=== PATIENT | female | born 1940 | race African-American/Black ===

== ENCOUNTER 2022-10-07 18:40 | Inpatient (IN) | payer OTHER ==
[2022-10-07 19:03] VITALS: BMI 25.6
[2022-10-07 21:09] LABS: BASO % 0.5 % (0-2.0); EOS % 0.2 % (0-4.5); HEMOGLOBIN 14.5 GM/dL (10.7-15.3); LYMPH % 13.2 % (8-40); MCH 28.9 pg (25.7-33.7); MCHC 33.8 g/dl (32.0-36.0); MEAN CELL VOLUME 85.4 fl (80-96); MEAN PLT VOLUME 9.7 fl (7.5-11.1); MONO % 14.1 % (3.8-10.2); PLATELET COUNT 204 10^3/uL (134-434); RBC 5.04 M/mm3 (3.60-5.2); RDW 17.1 % (11.6-15.6); WHITE BLOOD COUNT 11.2 K/mm3 (4.0-10.0)
[2022-10-07 21:13] LABS: URINE APPEARANCE CLOUDY; URINE BILIRUBIN MODERATE (NEGATIVE); URINE COLOR RED; URINE GLUCOSE (UA) 500 mg/dl (NEGATIVE)
[2022-10-07 21:14] LABS: URINE PROTEIN 300 (NEGATIVE)
[2022-10-07 21:19] LABS: EPI CELLS 29 /uL (0-25.1); HYALINE CASTS 0 /uL (0-3.1); URINE WBC 10 /uL (0-25.8)
[2022-10-07 21:23] LABS: INR 1.28 (0.83-1.09); PROTHROMBIN TIME (PATIENT) 14.8 SEC (9.7-13.0)
[2022-10-07 21:26] LABS: ACTIVATED PTT 27.8 SECONDS (25.2-36.5)
[2022-10-07 21:28] LABS: CHLORIDE 89 mmol/L (98-107); SODIUM 124 mmol/L (136-145)
[2022-10-07 21:30] LABS: ALBUMIN 3.4 g/dl (3.4-5.0); BLOOD UREA NITROGEN 60.6 mg/dL (7-18); CALCIUM 9.6 mg/dL (8.5-10.1); CO2 27 mmol/L (21-32); GLUCOSE,RANDOM 328 mg/dL (74-106)
[2022-10-07 21:33] LABS: CREATININE 2.2 mg/dL (0.55-1.3)
[2022-10-07 21:35] LABS: BILIRUBIN,TOTAL 0.6 mg/dL (0.2-1); TOT PROT 9.9 g/dl (6.4-8.2)
[2022-10-07 21:36] LABS: ALK PHOS 183 U/L (45-117)
[2022-10-07 21:43] LABS: URINE KETONE NEGATIVE (NEGATIVE); URINE LEUK ESTERASE 3+ (NEGATIVE); URINE NITRITE POSITIVE (NEGATIVE)
[2022-10-07 21:49] LABS: ANION GAP 8 MMOL/L (8-16); SGOT/AST 192 U/L (15-37); SGPT/ALT 27 U/L (13-61)
[2022-10-07 22:02] LABS: URINE RBC >200 /uL (0-23.9)
[2022-10-07] MEDS ORDERED: CEFTRIAXONE 1,000 MG in DEXTROSE 5%-WATER - 50 ML IVPB ONE (22:11)
[2022-10-07] MEDS ORDERED: CEFTRIAXONE 1 GM/50 ML BAG ONE (22:49)
[2022-10-08] MEDS ORDERED: KETOROLAC TROMETHAMINE 15 MG/ML VIAL IVPUSH PRN (01:16)
[2022-10-08] MEDS ORDERED: ACETAMINOPHEN 1000 MG/100 ML BAG IVPB ONE (01:30)
[2022-10-08] MEDS: SODIUM CHLORIDE 1,000 ML IV SCH (01:40)
[2022-10-08 02:08] LABS: ALBUMIN 3.5 g/dl (3.4-5.0); CALCIUM 9.6 mg/dL (8.5-10.1)
[2022-10-08 02:09] LABS: BLOOD UREA NITROGEN 60.8 mg/dL (7-18)
[2022-10-08 02:11] LABS: CREATININE 2.1 mg/dL (0.55-1.3)
[2022-10-08 02:13] LABS: BILIRUBIN,TOTAL 0.7 mg/dL (0.2-1); TOT PROT 8.9 g/dl (6.4-8.2)
[2022-10-08] MEDS ORDERED: ACETAMINOPHEN INJECTION 100 ML IVPB ONE (02:21)
[2022-10-08] MEDS: INSULIN SLIDING SCALE (NOVOLOG) 1 VIAL SQ SCH ×5 (02:40→22:35)
[2022-10-08] MEDS ORDERED: SODIUM CHLORIDE 500 ML IV STA (05:28)
[2022-10-08] MEDS ORDERED: ACETAMINOPHEN 325 MG TABLET (FP) PO PRN (06:00)
[2022-10-08] MEDS ORDERED: [UNRECOGNIZED DRUG - REMARK] TP PRN (06:28)
[2022-10-08] MEDS ORDERED: SENNOSIDES 8.6MG TABLET (FP) PO ONE ×2 (07:38→23:36)
[2022-10-08] MEDS ORDERED: PANTOPRAZOLE 40 MG TABLET PO ONE ×3 (07:38→23:36)
[2022-10-08] MEDS ORDERED: FUROSEMIDE 40 MG TABLET (FP) ONE (07:38)
[2022-10-08] MEDS ORDERED: CARVEDILOL 3.125 MG TABLET (FP) ONE ×2 (07:38→23:36)
[2022-10-08] MEDS ORDERED: CEFTRIAXONE 1 GM/50 ML BAG ONE (07:39)
[2022-10-08] MEDS ORDERED: FERROUS SO4 325 MG TABLET (FP) ONE (07:39)
[2022-10-08 07:55] LABS: CHLORIDE 91 mmol/L (98-107); SODIUM 130 mmol/L (136-145)
[2022-10-08 07:57] LABS: ANION GAP 11 MMOL/L (8-16); BLOOD UREA NITROGEN 58.2 mg/dL (7-18); CALCIUM 9.2 mg/dL (8.5-10.1); CO2 28 mmol/L (21-32); GLUCOSE,RANDOM 252 mg/dL (74-106)
[2022-10-08 07:59] LABS: ALBUMIN 3.4 g/dl (3.4-5.0); BLOOD UREA NITROGEN 59.4 mg/dL (7-18); CALCIUM 9.4 mg/dL (8.5-10.1); MAGNESIUM 2.7 mg/dL (1.8-2.4)
[2022-10-08 08:00] LABS: HEMATOCRIT 41.1 % (32.4-45.2); HEMOGLOBIN 13.9 GM/dL (10.7-15.3); MCH 29.3 pg (25.7-33.7); MCHC 33.7 g/dl (32.0-36.0); MEAN CELL VOLUME 86.7 fl (80-96); MEAN PLT VOLUME 9.4 fl (7.5-11.1); PLATELET COUNT 146 10^3/uL (134-434); RBC 4.74 M/mm3 (3.60-5.2); RDW 16.3 % (11.6-15.6); WHITE BLOOD COUNT 11.6 K/mm3 (4.0-10.0)
[2022-10-08 08:02] LABS: CREATININE 2.1 mg/dL (0.55-1.3); PHOSPHOROUS 3.9 mg/dL (2.5-4.9)
[2022-10-08 08:04] LABS: BILIRUBIN,TOTAL 0.9 mg/dL (0.2-1); TOT PROT 8.4 g/dl (6.4-8.2)
[2022-10-08] MEDS: CARVEDILOL 3.125 MG TABLET (FP) PO SCH ×2 (09:31→23:00)
[2022-10-08] MEDS: PANTOPRAZOLE 40 MG TABLET PO SCH ×2 (09:31→23:00)
[2022-10-08] MEDS: CEFTRIAXONE 1 GM in DEXTROSE 5%-WATER - 50 ML IVPB SCH (09:31)
[2022-10-08] MEDS: FERROUS SO4 325 MG TABLET (FP) PO SCH (09:31)
[2022-10-08] MEDS: SENNOSIDES 8.6MG TABLET (FP) PO SCH ×2 (09:31→23:00)
[2022-10-08] MEDS ORDERED: FUROSEMIDE 40 MG TABLET (FP) PO SCH (10:00)
[2022-10-08] MEDS ORDERED: PATIENT'S OWN MEDICATION (NON-FORMULARY) (Cranberry Fruit Extract [Cranberry] 250 MG Capsu PO SCH (10:00)
[2022-10-08] MEDS ORDERED: ACETAMINOPHEN 325 MG TABLET (FP) ONE (17:41)
[2022-10-08] MEDS: INSULIN (LEVEMIR) 100 UNITS/ML UNITS SQ SCH (22:35)
[2022-10-08] MEDS: ATORVASTATIN CA 10 MG TABLET (FP) PO SCH (23:00)
[2022-10-08] MEDS ORDERED: ATORVASTATIN CA 10 MG TABLET (FP) ONE (23:36)
[2022-10-09] MEDS: SODIUM CHLORIDE 1,000 ML IV SCH ×2 (01:00→22:01)
[2022-10-09] MEDS ORDERED: ACETAMINOPHEN 1000 MG/100 ML BAG IVPB PRN (04:59)
[2022-10-09 07:16] LABS: BASO % 0.6 % (0-2.0); EOS % 0.9 % (0-4.5); HEMATOCRIT 34.8 % (32.4-45.2); HEMOGLOBIN 11.5 GM/dL (10.7-15.3); LYMPH % 18.5 % (8-40); MCH 28.8 pg (25.7-33.7); MEAN CELL VOLUME 87.2 fl (80-96); MEAN PLT VOLUME 9.3 fl (7.5-11.1); MONO % 19.1 % (3.8-10.2); NEUT % 60.9 % (42.8-82.8); PLATELET COUNT 147 10^3/uL (134-434); RBC 3.99 M/mm3 (3.60-5.2); RDW 16.3 % (11.6-15.6); WHITE BLOOD COUNT 6.9 K/mm3 (4.0-10.0)
[2022-10-09 07:48] LABS: CALCIUM 8.8 mg/dL (8.5-10.1)
[2022-10-09 07:50] LABS: ALBUMIN 2.9 g/dl (3.4-5.0); BLOOD UREA NITROGEN 47.9 mg/dL (7-18); MAGNESIUM 2.6 mg/dL (1.8-2.4)
[2022-10-09 07:53] LABS: CREATININE 1.6 mg/dL (0.55-1.3); PHOSPHOROUS 3.2 mg/dL (2.5-4.9)
[2022-10-09 07:54] LABS: BILIRUBIN,TOTAL 0.7 mg/dL (0.2-1); TOT PROT 7.3 g/dl (6.4-8.2)
[2022-10-09] MEDS: INSULIN (LEVEMIR) 100 UNITS/ML UNITS SQ SCH ×2 (08:26→22:20)
[2022-10-09] MEDS: INSULIN SLIDING SCALE (NOVOLOG) 1 VIAL SQ SCH ×4 (08:26→22:21)
[2022-10-09] MEDS ORDERED: PANTOPRAZOLE 40 MG TABLET PO ONE (08:36)
[2022-10-09] MEDS ORDERED: FERROUS SO4 325 MG TABLET (FP) ONE (08:36)
[2022-10-09] MEDS ORDERED: CARVEDILOL 3.125 MG TABLET (FP) ONE (08:36)
[2022-10-09] MEDS ORDERED: CEFTRIAXONE 1 GM/50 ML BAG ONE (08:37)
[2022-10-09] MEDS: FERROUS SO4 325 MG TABLET (FP) PO SCH (09:04)
[2022-10-09] MEDS: CEFTRIAXONE 1 GM in DEXTROSE 5%-WATER - 50 ML IVPB SCH (09:05)
[2022-10-09] MEDS: SENNOSIDES 8.6MG TABLET (FP) PO SCH ×2 (09:05→22:19)
[2022-10-09] MEDS: PANTOPRAZOLE 40 MG TABLET PO SCH (09:05)
[2022-10-09] MEDS ORDERED: SODIUM CHLORIDE 1,000 ML IV SCH (10:00)
[2022-10-09] MEDS: CARVEDILOL 3.125 MG TABLET (FP) PO SCH (18:41)
[2022-10-09] MEDS: ATORVASTATIN CA 10 MG TABLET (FP) PO SCH (22:19)
[2022-10-10 04:31] LABS: BASO % 0.6 % (0-2.0); EOS % 1.7 % (0-4.5); HEMOGLOBIN 11.5 GM/dL (10.7-15.3); LYMPH % 21.8 % (8-40); MEAN CELL VOLUME 87.8 fl (80-96); MEAN PLT VOLUME 9.2 fl (7.5-11.1); MONO % 18.1 % (3.8-10.2); NEUT % 57.8 % (42.8-82.8); PLATELET COUNT 163 10^3/uL (134-434); RBC 3.98 M/mm3 (3.60-5.2); RDW 16.5 % (11.6-15.6); WHITE BLOOD COUNT 7.4 K/mm3 (4.0-10.0)
[2022-10-10] MEDS: SODIUM CHLORIDE 1,000 ML IV SCH (05:36)
[2022-10-10] MEDS: INSULIN (LEVEMIR) 100 UNITS/ML UNITS SQ SCH (06:11)
[2022-10-10] MEDS: INSULIN SLIDING SCALE (NOVOLOG) 1 VIAL SQ SCH ×4 (06:11→21:44)
[2022-10-10 08:23] LABS: INR 1.18 (0.83-1.09); PROTHROMBIN TIME (PATIENT) 13.6 SEC (9.7-13.0)
[2022-10-10 08:26] LABS: ACTIVATED PTT 25.5 SECONDS (25.2-36.5)
[2022-10-10 08:27] LABS: BASO % 0.6 % (0-2.0); HEMATOCRIT 31.8 % (32.4-45.2); HEMOGLOBIN 10.6 GM/dL (10.7-15.3); LYMPH % 14.4 % (8-40); MCH 29.2 pg (25.7-33.7); MCHC 33.4 g/dl (32.0-36.0); MEAN CELL VOLUME 87.5 fl (80-96); MEAN PLT VOLUME 9.2 fl (7.5-11.1); MONO % 14.6 % (3.8-10.2); NEUT % 69.4 % (42.8-82.8); PLATELET COUNT 150 10^3/uL (134-434); RBC 3.63 M/mm3 (3.60-5.2); RDW 16.7 % (11.6-15.6); WHITE BLOOD COUNT 8.4 K/mm3 (4.0-10.0)
[2022-10-10 08:44] LABS: CREATININE 0.9 mg/dL (0.55-1.3)
[2022-10-10] MEDS: FERROUS SO4 325 MG TABLET (FP) PO SCH (09:37)
[2022-10-10] MEDS: SENNOSIDES 8.6MG TABLET (FP) PO SCH ×3 (09:38→21:39)
[2022-10-10] MEDS: PANTOPRAZOLE 40 MG TABLET PO SCH (09:38)
[2022-10-10] MEDS: CARVEDILOL 3.125 MG TABLET (FP) PO SCH ×2 (09:57→21:39)
[2022-10-10] MEDS ORDERED: INSULIN (LEVEMIR) 100 UNITS/ML UNITS SQ SCH (11:06)
[2022-10-10] MEDS ORDERED: HEPARIN NA (PORCINE) 5,000 UNITS/ML 1ML VIAL SQ ONE (15:23)
[2022-10-10] MEDS ORDERED: HEPARIN NA (PORCINE) 5,000 UNITS/ML 1ML VIAL IVPUSH PRN ×2 (15:23)
[2022-10-10] MEDS: HEPARIN - 25,000 UNIT in SODIUM CHLORIDE 495 ML IV SCH (16:12)
[2022-10-10] MEDS: ATORVASTATIN CA 10 MG TABLET (FP) PO SCH (21:39)
[2022-10-10 22:58] LABS: BLOOD UREA NITROGEN 23.7 mg/dL (7-18); CALCIUM 8.5 mg/dL (8.5-10.1)
[2022-10-11] MEDS: INSULIN SLIDING SCALE (NOVOLOG) 1 VIAL SQ SCH ×4 (06:31→21:30)
[2022-10-11 07:24] LABS: BASO % 0.6 % (0-2.0); EOS % 1.4 % (0-4.5); HEMATOCRIT 35.2 % (32.4-45.2); HEMOGLOBIN 11.5 GM/dL (10.7-15.3); LYMPH % 17.2 % (8-40); MCH 28.4 pg (25.7-33.7); MCHC 32.6 g/dl (32.0-36.0); MEAN CELL VOLUME 86.9 fl (80-96); MEAN PLT VOLUME 9.4 fl (7.5-11.1); MONO % 13.7 % (3.8-10.2); NEUT % 67.1 % (42.8-82.8); PLATELET COUNT 169 10^3/uL (134-434); RBC 4.05 M/mm3 (3.60-5.2); RDW 16.7 % (11.6-15.6); WHITE BLOOD COUNT 8.7 K/mm3 (4.0-10.0)
[2022-10-11] MEDS: PANTOPRAZOLE 40 MG TABLET PO SCH (09:23)
[2022-10-11] MEDS: CARVEDILOL 3.125 MG TABLET (FP) PO SCH ×2 (09:23→21:20)
[2022-10-11] MEDS: FERROUS SO4 325 MG TABLET (FP) PO SCH (09:23)
[2022-10-11] MEDS: SENNOSIDES 8.6MG TABLET (FP) PO SCH ×2 (09:23→21:20)
[2022-10-11] MEDS: VITAMIN B COMP W-C 1 EA TABLET (NEPHRO-VITE) PO SCH (09:26)
[2022-10-11] MEDS ORDERED: PHENAZOPYRIDINE HCL 100 MG TABLET (FP) PO ONE (11:00)
[2022-10-11] MEDS: HEPARIN - 25,000 UNIT in SODIUM CHLORIDE 495 ML IV SCH (17:43)
[2022-10-11] MEDS: ATORVASTATIN CA 10 MG TABLET (FP) PO SCH (21:20)
[2022-10-12] MEDS: INSULIN SLIDING SCALE (NOVOLOG) 1 VIAL SQ SCH ×4 (06:05→21:43)
[2022-10-12] MEDS: HEPARIN - 25,000 UNIT in SODIUM CHLORIDE 495 ML IV SCH ×2 (06:55→18:40)
[2022-10-12 08:25] LABS: BASO % 0.5 % (0-2.0); EOS % 0.9 % (0-4.5); HEMATOCRIT 34.7 % (32.4-45.2); HEMOGLOBIN 11.6 GM/dL (10.7-15.3); LYMPH % 16.9 % (8-40); MCH 29.5 pg (25.7-33.7); MCHC 33.6 g/dl (32.0-36.0); MEAN CELL VOLUME 87.9 fl (80-96); MEAN PLT VOLUME 8.8 fl (7.5-11.1); MONO % 14.8 % (3.8-10.2); NEUT % 66.9 % (42.8-82.8); PLATELET COUNT 153 10^3/uL (134-434); RBC 3.94 M/mm3 (3.60-5.2); RDW 16.8 % (11.6-15.6); WHITE BLOOD COUNT 8.3 K/mm3 (4.0-10.0)
[2022-10-12] MEDS: SENNOSIDES 8.6MG TABLET (FP) PO SCH ×2 (09:37→21:42)
[2022-10-12] MEDS: VITAMIN B COMP W-C 1 EA TABLET (NEPHRO-VITE) PO SCH (09:37)
[2022-10-12] MEDS: FERROUS SO4 325 MG TABLET (FP) PO SCH (09:38)
[2022-10-12] MEDS: PANTOPRAZOLE 40 MG TABLET PO SCH (09:38)
[2022-10-12] MEDS: CARVEDILOL 3.125 MG TABLET (FP) PO SCH (09:42)
[2022-10-12] MEDS ORDERED: SODIUM CHLORIDE 1,000 ML IV SCH (09:45)
[2022-10-12] MEDS ORDERED: LIDOCAINE HCL 2% JELLY (30 ML/TUBE) TP ONE (11:06)
[2022-10-12] MEDS ORDERED: PHENAZOPYRIDINE HCL 100 MG TABLET (FP) PO ONE (11:07)
[2022-10-12] MEDS ORDERED: PHENYLEPHRINE HCL/COCOA BUTTER SUPPOSITORY RC PRN (15:44)
[2022-10-12] MEDS ORDERED: LIDOCAINE HCL 2% JELLY (5 ML/TUBE) TP ONE (15:45)
[2022-10-12] MEDS ORDERED: CLOPIDOGREL BISULFATE 75 MG TABLET (FP) PO SCH (16:30)
[2022-10-12] MEDS ORDERED: ACETAMINOPHEN 325 MG TABLET (FP) PO ONE (16:32)
[2022-10-12] MEDS ORDERED: NITROGLYCERIN SUBLINGUAL 1/150 0.4 MG TAB SL ONE (16:50)
[2022-10-12] MEDS ORDERED: METOPROLOL TARTRATE 25 MG TABLET (FP) PO ONE (16:50)
[2022-10-12] MEDS: ATORVASTATIN CA 10 MG TABLET (FP) PO SCH (21:42)
[2022-10-13] MEDS: INSULIN SLIDING SCALE (NOVOLOG) 1 VIAL SQ SCH ×4 (06:22→23:25)
[2022-10-13 07:49] LABS: BASO % 0.7 % (0-2.0); EOS % 1.9 % (0-4.5); HEMATOCRIT 35.2 % (32.4-45.2); HEMOGLOBIN 11.2 GM/dL (10.7-15.3); MCH 28.4 pg (25.7-33.7); MEAN CELL VOLUME 88.8 fl (80-96); MEAN PLT VOLUME 9.5 fl (7.5-11.1); MONO % 12.8 % (3.8-10.2); NEUT % 64.6 % (42.8-82.8); PLATELET COUNT 172 10^3/uL (134-434); RBC 3.96 M/mm3 (3.60-5.2); RDW 16.8 % (11.6-15.6); WHITE BLOOD COUNT 7.7 K/mm3 (4.0-10.0)
[2022-10-13 10:13] LABS: INR 1.15 (0.83-1.09); PROTHROMBIN TIME (PATIENT) 13.2 SEC (9.7-13.0)
[2022-10-13] MEDS: SENNOSIDES 8.6MG TABLET (FP) PO SCH ×2 (10:55→22:51)
[2022-10-13] MEDS: PANTOPRAZOLE 40 MG TABLET PO SCH (10:55)
[2022-10-13] MEDS: FERROUS SO4 325 MG TABLET (FP) PO SCH (10:55)
[2022-10-13] MEDS: VITAMIN B COMP W-C 1 EA TABLET (NEPHRO-VITE) PO SCH (10:55)
[2022-10-13] MEDS: METOPROLOL TARTRATE 25 MG TABLET (FP) PO SCH ×2 (10:55→22:49)
[2022-10-13 11:15] LABS: BLOOD UREA NITROGEN 11.7 mg/dL (7-18); CALCIUM 8.3 mg/dL (8.5-10.1); CREATININE 0.8 mg/dL (0.55-1.3)
[2022-10-13] MEDS ORDERED: HEPARIN NA (PORCINE) 5,000 UNITS/ML 1ML VIAL SQ ONE (15:31)
[2022-10-13] MEDS: HEPARIN - 25,000 UNIT in SODIUM CHLORIDE 495 ML IV SCH (17:30)
[2022-10-13] MEDS: ATORVASTATIN CA 10 MG TABLET (FP) PO SCH (22:49)
[2022-10-14] MEDS: HEPARIN - 25,000 UNIT in SODIUM CHLORIDE 495 ML IV SCH (01:24)
[2022-10-14] MEDS: INSULIN SLIDING SCALE (NOVOLOG) 1 VIAL SQ SCH ×4 (07:01→22:57)
[2022-10-14 08:30] LABS: HEMATOCRIT 34.4 % (32.4-45.2); HEMOGLOBIN 11.3 GM/dL (10.7-15.3); MCH 28.7 pg (25.7-33.7); MCHC 32.9 g/dl (32.0-36.0); MEAN CELL VOLUME 87.3 fl (80-96); MEAN PLT VOLUME 9.7 fl (7.5-11.1); PLATELET COUNT 166 10^3/uL (134-434); RBC 3.94 M/mm3 (3.60-5.2); WHITE BLOOD COUNT 7.2 K/mm3 (4.0-10.0)
[2022-10-14] MEDS ORDERED: CEFTRIAXONE 1 GM in DEXTROSE 5%-WATER - 50 ML IVPB SCH (10:00)
[2022-10-14] MEDS: FERROUS SO4 325 MG TABLET (FP) PO SCH (10:38)
[2022-10-14] MEDS: PANTOPRAZOLE 40 MG TABLET PO SCH (10:38)
[2022-10-14] MEDS: VITAMIN B COMP W-C 1 EA TABLET (NEPHRO-VITE) PO SCH (10:38)
[2022-10-14] MEDS: METOPROLOL TARTRATE 25 MG TABLET (FP) PO SCH ×2 (10:38→22:41)
[2022-10-14] MEDS: SENNOSIDES 8.6MG TABLET (FP) PO SCH ×2 (10:39→22:43)
[2022-10-14] MEDS ORDERED: ETOMIDATE 20 MG/10 ML VIAL IVPUSH ONE (13:30)
[2022-10-14] MEDS ORDERED: MIDAZOLAM HCL 2 MG/2 ML SINGLE DOSE VIAL ONE (13:54)
[2022-10-14] MEDS ORDERED: IOHEXOL 300 MG/ML INFUS..BTL IV ONE (14:31)
[2022-10-14] MEDS ORDERED: PHENYLEPHRINE HCL/COCOA BUTTER SUPPOSITORY RC PRN ×2 (14:59→15:38)
[2022-10-14] MEDS ORDERED: HEPARIN NA (PORCINE) 5,000 UNITS/ML 1ML VIAL IVPUSH PRN ×4 (14:59)
[2022-10-14] MEDS ORDERED: HEPARIN - 25,000 UNIT in SODIUM CHLORIDE 495 ML IV SCH (14:59)
[2022-10-14] MEDS ORDERED: ONDANSETRON 4 MG/2 ML VIAL IVPUSH PRN (15:39)
[2022-10-14] MEDS ORDERED: LACTATED RINGERS SOLUTION 1,000 ML IV SCH (15:45)
[2022-10-14] MEDS ORDERED: INSULIN SLIDING SCALE (NOVOLOG) 1 VIAL SQ SCH (16:30)
[2022-10-14] MEDS: oxyCODONE HCL 5 MG TABLET PO PRN (20:13)
[2022-10-14] MEDS ORDERED: METOPROLOL TARTRATE 25 MG TABLET (FP) PO SCH (22:00)
[2022-10-14] MEDS ORDERED: ATORVASTATIN CA 10 MG TABLET (FP) PO SCH (22:00)
[2022-10-14] MEDS ORDERED: SENNOSIDES 8.6MG TABLET (FP) PO SCH (22:00)
[2022-10-14] MEDS: ATORVASTATIN CA 10 MG TABLET (FP) PO SCH (22:43)
[2022-10-15] MEDS: oxyCODONE HCL 5 MG TABLET PO PRN ×2 (04:33→15:07)
[2022-10-15] MEDS: INSULIN SLIDING SCALE (NOVOLOG) 1 VIAL SQ SCH ×4 (06:23→21:12)
[2022-10-15] MEDS: VITAMIN B COMP W-C 1 EA TABLET (NEPHRO-VITE) PO SCH (09:25)
[2022-10-15] MEDS: CEFTRIAXONE 1 GM in DEXTROSE 5%-WATER - 50 ML IVPB SCH (09:25)
[2022-10-15] MEDS: PANTOPRAZOLE 40 MG TABLET PO SCH (09:25)
[2022-10-15] MEDS: FERROUS SO4 325 MG TABLET (FP) PO SCH (09:25)
[2022-10-15] MEDS: SENNOSIDES 8.6MG TABLET (FP) PO SCH ×2 (09:25→21:12)
[2022-10-15] MEDS ORDERED: FERROUS SO4 325 MG TABLET (FP) PO SCH (10:00)
[2022-10-15] MEDS ORDERED: VITAMIN B COMP W-C 1 EA TABLET (NEPHRO-VITE) PO SCH (10:00)
[2022-10-15] MEDS ORDERED: PANTOPRAZOLE 40 MG TABLET PO SCH (10:00)
[2022-10-15] MEDS ORDERED: CEFTRIAXONE 1 GM in DEXTROSE 5%-WATER - 50 ML IVPB SCH (10:00)
[2022-10-15] MEDS: METOPROLOL TARTRATE 25 MG TABLET (FP) PO SCH ×2 (12:00→21:11)
[2022-10-15] MEDS ORDERED: SODIUM CHLORIDE 500 ML IV STA (20:54)
[2022-10-15] MEDS: ATORVASTATIN CA 10 MG TABLET (FP) PO SCH (21:11)
[2022-10-16] MEDS: INSULIN SLIDING SCALE (NOVOLOG) 1 VIAL SQ SCH ×4 (06:18→22:45)
[2022-10-16 07:58] LABS: HEMATOCRIT 33.2 % (32.4-45.2); HEMOGLOBIN 10.5 GM/dL (10.7-15.3); MCH 28.1 pg (25.7-33.7); MCHC 31.7 g/dl (32.0-36.0); MEAN CELL VOLUME 88.8 fl (80-96); MEAN PLT VOLUME 9.1 fl (7.5-11.1); PLATELET COUNT 173 10^3/uL (134-434); RBC 3.74 M/mm3 (3.60-5.2); RDW 17.2 % (11.6-15.6); WHITE BLOOD COUNT 29.5 K/mm3 (4.0-10.0)
[2022-10-16] MEDS: AMINO ACIDS/PROTEIN HYDROLYS 30 ML LIQUID.PKT PO SCH ×2 (08:14→18:03)
[2022-10-16 08:36] LABS: CALCIUM 8.2 mg/dL (8.5-10.1)
[2022-10-16 08:37] LABS: BLOOD UREA NITROGEN 24.2 mg/dL (7-18)
[2022-10-16 08:40] LABS: CREATININE 1.2 mg/dL (0.55-1.3)
[2022-10-16 09:09] LABS: ANISOCYTOSIS 3+; MACROCYTOSIS 0
[2022-10-16] MEDS: PANTOPRAZOLE 40 MG TABLET PO SCH (10:01)
[2022-10-16] MEDS: VITAMIN B COMP W-C 1 EA TABLET (NEPHRO-VITE) PO SCH (10:01)
[2022-10-16] MEDS: FERROUS SO4 325 MG TABLET (FP) PO SCH (10:01)
[2022-10-16] MEDS: CEFTRIAXONE 1 GM in DEXTROSE 5%-WATER - 50 ML IVPB SCH (10:02)
[2022-10-16] MEDS: SENNOSIDES 8.6MG TABLET (FP) PO SCH ×2 (10:02→22:57)
[2022-10-16] MEDS: CARVEDILOL 3.125 MG TABLET (FP) PO SCH ×2 (10:02→22:57)
[2022-10-16 16:44] LABS: HEMATOCRIT 33.2 % (32.4-45.2); HEMOGLOBIN 10.7 GM/dL (10.7-15.3); MCH 28.5 pg (25.7-33.7); MCHC 32.3 g/dl (32.0-36.0); MEAN CELL VOLUME 88.3 fl (80-96); MEAN PLT VOLUME 8.4 fl (7.5-11.1); PLATELET COUNT 166 10^3/uL (134-434); RBC 3.76 M/mm3 (3.60-5.2); RDW 17.4 % (11.6-15.6); WHITE BLOOD COUNT 27.7 K/mm3 (4.0-10.0)
[2022-10-16 17:39] LABS: ANISOCYTOSIS 2+; MACROCYTOSIS 1+; TARGET CELLS 1+
[2022-10-16 17:48] LABS: PLATELET ESTIMATE ADEQUATE
[2022-10-16 18:06] LABS: EPI CELLS 21 /uL (0-25.1); HYALINE CASTS 10 /uL (0-3.1); PH,URINE 5.5 (5.0-8.0); URINE APPEARANCE TURBID; URINE BACTERIA 44 /uL (0-1359); URINE BILIRUBIN NEGATIVE (NEGATIVE); URINE COLOR DK YELLOW; URINE GLUCOSE (UA) TRACE (NEGATIVE); URINE KETONE NEGATIVE (NEGATIVE); URINE LEUK ESTERASE 3+ (NEGATIVE); URINE NITRITE NEGATIVE (NEGATIVE); URINE PROTEIN 3+ (NEGATIVE); URINE UROBILINOGEN 0.2 mg/dL (0.2-1.0); URINE WBC 24207 /uL (0-25.8)
[2022-10-16 19:22] LABS: URINE RBC 1822.6 /uL (0-23.9); YEAST NONE SEEN (NEGATIVE)
[2022-10-16] MEDS: oxyCODONE HCL 5 MG TABLET PO PRN (22:57)
[2022-10-16] MEDS: ATORVASTATIN CA 10 MG TABLET (FP) PO SCH (22:57)
[2022-10-17] MEDS: INSULIN SLIDING SCALE (NOVOLOG) 1 VIAL SQ SCH ×4 (06:25→21:56)
[2022-10-17 08:56] LABS: BASO % 0.3 % (0-2.0); EOS % 0.5 % (0-4.5); HEMATOCRIT 31.2 % (32.4-45.2); HEMOGLOBIN 10.2 GM/dL (10.7-15.3); MCH 28.6 pg (25.7-33.7); MCHC 32.6 g/dl (32.0-36.0); MEAN CELL VOLUME 87.8 fl (80-96); MEAN PLT VOLUME 8.9 fl (7.5-11.1); MONO % 8.7 % (3.8-10.2); NEUT % 87.5 % (42.8-82.8); PLATELET COUNT 166 10^3/uL (134-434); RBC 3.56 M/mm3 (3.60-5.2); RDW 17.5 % (11.6-15.6); WHITE BLOOD COUNT 23.1 K/mm3 (4.0-10.0)
[2022-10-17] MEDS: CEFTRIAXONE 1 GM in DEXTROSE 5%-WATER - 50 ML IVPB SCH (09:53)
[2022-10-17] MEDS: SENNOSIDES 8.6MG TABLET (FP) PO SCH ×2 (09:53→21:57)
[2022-10-17] MEDS: CARVEDILOL 3.125 MG TABLET (FP) PO SCH ×2 (09:53→21:41)
[2022-10-17] MEDS: VITAMIN B COMP W-C 1 EA TABLET (NEPHRO-VITE) PO SCH (09:53)
[2022-10-17] MEDS: PANTOPRAZOLE 40 MG TABLET PO SCH (09:53)
[2022-10-17] MEDS: AMINO ACIDS/PROTEIN HYDROLYS 30 ML LIQUID.PKT PO SCH ×2 (09:53→17:36)
[2022-10-17] MEDS: FERROUS SO4 325 MG TABLET (FP) PO SCH (09:53)
[2022-10-17 10:28] LABS: CALCIUM 8.5 mg/dL (8.5-10.1)
[2022-10-17 10:29] LABS: MAGNESIUM 1.8 mg/dL (1.8-2.4)
[2022-10-17 10:32] LABS: CREATININE 0.9 mg/dL (0.55-1.3); PHOSPHOROUS 3.1 mg/dL (2.5-4.9)
[2022-10-17 10:34] LABS: ANISOCYTOSIS 0; MACROCYTOSIS 0
[2022-10-17] MEDS: oxyCODONE HCL 5 MG TABLET PO PRN ×2 (17:34→21:41)
[2022-10-17] MEDS: PIPERACILLIN/TAZOB 3.375 GM 3.375 GM in DEXTROSE 5%-WATER - 50 ML IVPB SCH (17:36)
[2022-10-17] MEDS ORDERED: PIPERACILLIN/TAZOB 3.375 GM 3.375 GM in DEXTROSE 5%-WATER - 50 ML IVPB SCH (18:00)
[2022-10-17] MEDS: ATORVASTATIN CA 10 MG TABLET (FP) PO SCH (21:42)
[2022-10-18] MEDS: PIPERACILLIN/TAZOB 3.375 GM 3.375 GM in DEXTROSE 5%-WATER - 50 ML IVPB SCH ×3 (04:09→17:07)
[2022-10-18] MEDS: INSULIN SLIDING SCALE (NOVOLOG) 1 VIAL SQ SCH ×4 (06:26→22:59)
[2022-10-18 07:44] LABS: BASO % 0.5 % (0-2.0); EOS % 1.4 % (0-4.5); HEMATOCRIT 30.6 % (32.4-45.2); HEMOGLOBIN 10.1 GM/dL (10.7-15.3); LYMPH % 6.5 % (8-40); MCHC 33.1 g/dl (32.0-36.0); MEAN CELL VOLUME 87.7 fl (80-96); MEAN PLT VOLUME 8.8 fl (7.5-11.1); MONO % 13.6 % (3.8-10.2); PLATELET COUNT 164 10^3/uL (134-434); RBC 3.49 M/mm3 (3.60-5.2); RDW 17.3 % (11.6-15.6); WHITE BLOOD COUNT 12.9 K/mm3 (4.0-10.0)
[2022-10-18 08:09] LABS: BLOOD UREA NITROGEN 28.5 mg/dL (7-18); CALCIUM 8.3 mg/dL (8.5-10.1); MAGNESIUM 1.8 mg/dL (1.8-2.4)
[2022-10-18 08:12] LABS: CREATININE 0.9 mg/dL (0.55-1.3); PHOSPHOROUS 2.3 mg/dL (2.5-4.9)
[2022-10-18 08:13] LABS: BILIRUBIN,TOTAL 0.4 mg/dL (0.2-1)
[2022-10-18 08:14] LABS: TOT PROT 5.8 g/dl (6.4-8.2)
[2022-10-18 08:16] LABS: ALBUMIN 2.1 g/dl (3.4-5.0)
[2022-10-18] MEDS: oxyCODONE HCL 5 MG TABLET PO PRN ×3 (10:08→22:44)
[2022-10-18] MEDS: FERROUS SO4 325 MG TABLET (FP) PO SCH (10:10)
[2022-10-18] MEDS: CARVEDILOL 3.125 MG TABLET (FP) PO SCH ×2 (10:11→22:44)
[2022-10-18] MEDS: SENNOSIDES 8.6MG TABLET (FP) PO SCH ×3 (10:11→22:59)
[2022-10-18] MEDS: PANTOPRAZOLE 40 MG TABLET PO SCH (10:11)
[2022-10-18] MEDS: VITAMIN B COMP W-C 1 EA TABLET (NEPHRO-VITE) PO SCH (10:11)
[2022-10-18] MEDS: AMINO ACIDS/PROTEIN HYDROLYS 30 ML LIQUID.PKT PO SCH ×2 (10:12→16:42)
[2022-10-18] MEDS: ATORVASTATIN CA 10 MG TABLET (FP) PO SCH (22:44)
[2022-10-19] MEDS: PIPERACILLIN/TAZOB 3.375 GM 3.375 GM in DEXTROSE 5%-WATER - 50 ML IVPB SCH ×2 (02:35→10:03)
[2022-10-19] MEDS: INSULIN SLIDING SCALE (NOVOLOG) 1 VIAL SQ SCH ×4 (06:16→22:56)
[2022-10-19 07:43] LABS: HEMATOCRIT 29.3 % (32.4-45.2); HEMOGLOBIN 9.9 GM/dL (10.7-15.3); MCH 29.3 pg (25.7-33.7); MCHC 33.8 g/dl (32.0-36.0); MEAN CELL VOLUME 86.6 fl (80-96); MEAN PLT VOLUME 8.6 fl (7.5-11.1); PLATELET COUNT 171 10^3/uL (134-434); RBC 3.39 M/mm3 (3.60-5.2); RDW 17.1 % (11.6-15.6); WHITE BLOOD COUNT 9.9 K/mm3 (4.0-10.0)
[2022-10-19] MEDS: VITAMIN B COMP W-C 1 EA TABLET (NEPHRO-VITE) PO SCH (10:03)
[2022-10-19] MEDS: AMINO ACIDS/PROTEIN HYDROLYS 30 ML LIQUID.PKT PO SCH ×2 (10:03→18:05)
[2022-10-19] MEDS: CARVEDILOL 3.125 MG TABLET (FP) PO SCH ×2 (10:03→22:51)
[2022-10-19] MEDS: FERROUS SO4 325 MG TABLET (FP) PO SCH (10:03)
[2022-10-19] MEDS: PANTOPRAZOLE 40 MG TABLET PO SCH (10:03)
[2022-10-19] MEDS: SENNOSIDES 8.6MG TABLET (FP) PO SCH ×2 (10:08→22:52)
[2022-10-19] MEDS: oxyCODONE HCL 5 MG TABLET PO PRN ×2 (10:09→22:53)
[2022-10-19] MEDS ORDERED: MEROPENEM 1 GM in DEXTROSE 5%-WATER 100 ML IVPB SCH (18:00)
[2022-10-19] MEDS: ATORVASTATIN CA 10 MG TABLET (FP) PO SCH (22:51)
[2022-10-20] MEDS: MEROPENEM 1 GM in DEXTROSE 5%-WATER 100 ML IVPB SCH ×3 (02:43→17:40)
[2022-10-20] MEDS: INSULIN SLIDING SCALE (NOVOLOG) 1 VIAL SQ SCH ×4 (07:05→21:52)
[2022-10-20 07:49] LABS: BASO % 0.6 % (0-2.0); EOS % 0.7 % (0-4.5); HEMATOCRIT 30.8 % (32.4-45.2); HEMOGLOBIN 10.2 GM/dL (10.7-15.3); LYMPH % 13.3 % (8-40); MCHC 33.2 g/dl (32.0-36.0); MEAN CELL VOLUME 87.3 fl (80-96); MEAN PLT VOLUME 8.8 fl (7.5-11.1); NEUT % 73.4 % (42.8-82.8); PLATELET COUNT 207 10^3/uL (134-434); RBC 3.53 M/mm3 (3.60-5.2); RDW 16.7 % (11.6-15.6); WHITE BLOOD COUNT 10.7 K/mm3 (4.0-10.0)
[2022-10-20 08:06] LABS: CREATININE 0.8 mg/dL (0.55-1.3)
[2022-10-20 08:08] LABS: ALBUMIN 2.2 g/dl (3.4-5.0); BILIRUBIN,TOTAL 0.4 mg/dL (0.2-1); BLOOD UREA NITROGEN 21.3 mg/dL (7-18); TOT PROT 6.2 g/dl (6.4-8.2)
[2022-10-20 08:10] LABS: CALCIUM 8.1 mg/dL (8.5-10.1)
[2022-10-20] MEDS: PANTOPRAZOLE 40 MG TABLET PO SCH (09:52)
[2022-10-20] MEDS: FERROUS SO4 325 MG TABLET (FP) PO SCH (09:52)
[2022-10-20] MEDS: VITAMIN B COMP W-C 1 EA TABLET (NEPHRO-VITE) PO SCH (09:52)
[2022-10-20] MEDS: CARVEDILOL 3.125 MG TABLET (FP) PO SCH ×2 (09:52→21:52)
[2022-10-20] MEDS: SENNOSIDES 8.6MG TABLET (FP) PO SCH ×2 (09:53→21:57)
[2022-10-20] MEDS: AMINO ACIDS/PROTEIN HYDROLYS 30 ML LIQUID.PKT PO SCH ×3 (10:26→17:40)
[2022-10-20] MEDS: ATORVASTATIN CA 10 MG TABLET (FP) PO SCH (21:52)
[2022-10-21] MEDS: MEROPENEM 1 GM in DEXTROSE 5%-WATER 100 ML IVPB SCH ×3 (02:15→17:01)
[2022-10-21] MEDS: INSULIN SLIDING SCALE (NOVOLOG) 1 VIAL SQ SCH ×4 (06:23→21:21)
[2022-10-21 08:59] LABS: BASO % 0.7 % (0-2.0); EOS % 0.8 % (0-4.5); HEMATOCRIT 32.7 % (32.4-45.2); HEMOGLOBIN 10.4 GM/dL (10.7-15.3); LYMPH % 18.4 % (8-40); MCH 27.9 pg (25.7-33.7); MCHC 31.9 g/dl (32.0-36.0); MEAN CELL VOLUME 87.6 fl (80-96); MEAN PLT VOLUME 8.9 fl (7.5-11.1); MONO % 10.5 % (3.8-10.2); NEUT % 69.6 % (42.8-82.8); PLATELET COUNT 235 10^3/uL (134-434); RBC 3.73 M/mm3 (3.60-5.2); RDW 17.5 % (11.6-15.6)
[2022-10-21 09:14] LABS: BLOOD UREA NITROGEN 21.3 mg/dL (7-18)
[2022-10-21 09:19] LABS: CREATININE 0.7 mg/dL (0.55-1.3)
[2022-10-21] MEDS: SENNOSIDES 8.6MG TABLET (FP) PO SCH ×2 (10:43→21:16)
[2022-10-21] MEDS: FERROUS SO4 325 MG TABLET (FP) PO SCH (10:43)
[2022-10-21] MEDS: CARVEDILOL 3.125 MG TABLET (FP) PO SCH ×2 (10:43→21:16)
[2022-10-21] MEDS: PANTOPRAZOLE 40 MG TABLET PO SCH (10:43)
[2022-10-21] MEDS: AMINO ACIDS/PROTEIN HYDROLYS 30 ML LIQUID.PKT PO SCH ×3 (10:43→17:02)
[2022-10-21] MEDS: VITAMIN B COMP W-C 1 EA TABLET (NEPHRO-VITE) PO SCH (10:45)
[2022-10-21] MEDS: ZINC SULFATE 220 MG CAPSULE (FP) PO SCH (17:02)
[2022-10-21] MEDS: ATORVASTATIN CA 10 MG TABLET (FP) PO SCH (21:16)
[2022-10-21] MEDS: INSULIN (LEVEMIR) 100 UNITS/ML UNITS SQ SCH (21:23)
[2022-10-22] MEDS: MEROPENEM 1 GM in DEXTROSE 5%-WATER 100 ML IVPB SCH ×3 (01:02→17:29)
[2022-10-22] MEDS: INSULIN (LEVEMIR) 100 UNITS/ML UNITS SQ SCH ×2 (06:07→21:16)
[2022-10-22] MEDS: INSULIN SLIDING SCALE (NOVOLOG) 1 VIAL SQ SCH ×4 (06:07→21:15)
[2022-10-22 09:24] LABS: BASO % 0.8 % (0-2.0); EOS % 0.9 % (0-4.5); HEMATOCRIT 29.4 % (32.4-45.2); HEMOGLOBIN 9.6 GM/dL (10.7-15.3); LYMPH % 16.4 % (8-40); MCH 28.3 pg (25.7-33.7); MCHC 32.7 g/dl (32.0-36.0); MEAN CELL VOLUME 86.6 fl (80-96); MEAN PLT VOLUME 9.2 fl (7.5-11.1); MONO % 8.7 % (3.8-10.2); NEUT % 73.2 % (42.8-82.8); PLATELET COUNT 238 10^3/uL (134-434); RDW 17.3 % (11.6-15.6); WHITE BLOOD COUNT 9.2 K/mm3 (4.0-10.0)
[2022-10-22] MEDS: CARVEDILOL 3.125 MG TABLET (FP) PO SCH ×2 (09:42→21:15)
[2022-10-22] MEDS: VITAMIN B COMP W-C 1 EA TABLET (NEPHRO-VITE) PO SCH (09:46)
[2022-10-22] MEDS: PANTOPRAZOLE 40 MG TABLET PO SCH (09:46)
[2022-10-22] MEDS: AMINO ACIDS/PROTEIN HYDROLYS 30 ML LIQUID.PKT PO SCH ×3 (09:46→17:29)
[2022-10-22] MEDS: FERROUS SO4 325 MG TABLET (FP) PO SCH (09:46)
[2022-10-22] MEDS: ZINC SULFATE 220 MG CAPSULE (FP) PO SCH (09:46)
[2022-10-22] MEDS: SENNOSIDES 8.6MG TABLET (FP) PO SCH ×2 (09:47→21:16)
[2022-10-22 10:48] LABS: CALCIUM 8.1 mg/dL (8.5-10.1)
[2022-10-22 10:49] LABS: BLOOD UREA NITROGEN 21.6 mg/dL (7-18)
[2022-10-22 10:52] LABS: CREATININE 0.8 mg/dL (0.55-1.3)
[2022-10-22] MEDS ORDERED: ACETAMINOPHEN 325 MG TABLET (FP) PO PRN (13:32)
[2022-10-22] MEDS: traMADol HCL 50 MG TABLET PO PRN (14:05)
[2022-10-22] MEDS: ATORVASTATIN CA 10 MG TABLET (FP) PO SCH (21:15)
[2022-10-23] MEDS: MEROPENEM 1 GM in DEXTROSE 5%-WATER 100 ML IVPB SCH ×3 (01:29→18:08)
[2022-10-23] MEDS: INSULIN (LEVEMIR) 100 UNITS/ML UNITS SQ SCH (06:41)
[2022-10-23] MEDS: INSULIN SLIDING SCALE (NOVOLOG) 1 VIAL SQ SCH ×4 (06:41→21:01)
[2022-10-23 07:43] LABS: EOS % 1.3 % (0-4.5); HEMATOCRIT 31.4 % (32.4-45.2); HEMOGLOBIN 10.2 GM/dL (10.7-15.3); LYMPH % 17.6 % (8-40); MCH 28.2 pg (25.7-33.7); MCHC 32.4 g/dl (32.0-36.0); MEAN CELL VOLUME 87.2 fl (80-96); MEAN PLT VOLUME 9.1 fl (7.5-11.1); MONO % 9.4 % (3.8-10.2); NEUT % 70.7 % (42.8-82.8); PLATELET COUNT 272 10^3/uL (134-434); RDW 17.4 % (11.6-15.6)
[2022-10-23 08:01] LABS: BLOOD UREA NITROGEN 25.3 mg/dL (7-18); CALCIUM 8.3 mg/dL (8.5-10.1)
[2022-10-23 08:04] LABS: CREATININE 0.7 mg/dL (0.55-1.3)
[2022-10-23] MEDS: AMINO ACIDS/PROTEIN HYDROLYS 30 ML LIQUID.PKT PO SCH ×3 (10:25→18:08)
[2022-10-23] MEDS: PANTOPRAZOLE 40 MG TABLET PO SCH (10:36)
[2022-10-23] MEDS: FERROUS SO4 325 MG TABLET (FP) PO SCH (10:36)
[2022-10-23] MEDS: CARVEDILOL 3.125 MG TABLET (FP) PO SCH ×3 (10:36→21:01)
[2022-10-23] MEDS: SENNOSIDES 8.6MG TABLET (FP) PO SCH ×2 (10:36→21:02)
[2022-10-23] MEDS: traMADol HCL 50 MG TABLET PO PRN (10:37)
[2022-10-23] MEDS: ZINC SULFATE 220 MG CAPSULE (FP) PO SCH (10:37)
[2022-10-23] MEDS: VITAMIN B COMP W-C 1 EA TABLET (NEPHRO-VITE) PO SCH (10:38)
[2022-10-23] MEDS ORDERED: DEXTROSE 50%-WATER 25 GM/50 ML DISP.SYRIN IVPUSH PRN (14:31)
[2022-10-23] MEDS: ATORVASTATIN CA 10 MG TABLET (FP) PO SCH (21:01)
[2022-10-23] MEDS ORDERED: INSULIN (LEVEMIR) 100 UNITS/ML UNITS SQ SCH (22:00)
[2022-10-24] MEDS: MEROPENEM 1 GM in DEXTROSE 5%-WATER 100 ML IVPB SCH ×3 (02:08→18:33)
[2022-10-24] MEDS: INSULIN (LEVEMIR) 100 UNITS/ML UNITS SQ SCH (06:08)
[2022-10-24] MEDS: INSULIN SLIDING SCALE (NOVOLOG) 1 VIAL SQ SCH ×4 (06:08→22:27)
[2022-10-24] MEDS: traMADol HCL 50 MG TABLET PO PRN (07:45)
[2022-10-24 09:24] LABS: BASO % 0.4 % (0-2.0); EOS % 0.6 % (0-4.5); HEMATOCRIT 33.5 % (32.4-45.2); HEMOGLOBIN 10.5 GM/dL (10.7-15.3); LYMPH % 9.5 % (8-40); MCH 27.3 pg (25.7-33.7); MCHC 31.5 g/dl (32.0-36.0); MEAN CELL VOLUME 86.9 fl (80-96); MEAN PLT VOLUME 8.9 fl (7.5-11.1); MONO % 6.3 % (3.8-10.2); NEUT % 83.2 % (42.8-82.8); PLATELET COUNT 319 10^3/uL (134-434); RBC 3.86 M/mm3 (3.60-5.2); RDW 17.7 % (11.6-15.6); WHITE BLOOD COUNT 13.7 K/mm3 (4.0-10.0)
[2022-10-24 10:07] LABS: CALCIUM 8.6 mg/dL (8.5-10.1)
[2022-10-24 10:08] LABS: BLOOD UREA NITROGEN 25.4 mg/dL (7-18)
[2022-10-24 10:11] LABS: CREATININE 0.7 mg/dL (0.55-1.3)
[2022-10-24] MEDS: AMINO ACIDS/PROTEIN HYDROLYS 30 ML LIQUID.PKT PO SCH ×2 (11:50→18:33)
[2022-10-24] MEDS: ZINC SULFATE 220 MG CAPSULE (FP) PO SCH (11:51)
[2022-10-24] MEDS: CARVEDILOL 3.125 MG TABLET (FP) PO SCH ×2 (11:51→22:21)
[2022-10-24] MEDS: VITAMIN B COMP W-C 1 EA TABLET (NEPHRO-VITE) PO SCH (11:51)
[2022-10-24] MEDS: FERROUS SO4 325 MG TABLET (FP) PO SCH (11:51)
[2022-10-24] MEDS: PANTOPRAZOLE 40 MG TABLET PO SCH (11:51)
[2022-10-24] MEDS: SENNOSIDES 8.6MG TABLET (FP) PO SCH ×2 (12:26→21:05)
[2022-10-24] MEDS: ATORVASTATIN CA 10 MG TABLET (FP) PO SCH (22:21)
[2022-10-25] MEDS: MEROPENEM 1 GM in DEXTROSE 5%-WATER 100 ML IVPB SCH ×3 (01:01→18:13)
[2022-10-25] MEDS: INSULIN SLIDING SCALE (NOVOLOG) 1 VIAL SQ SCH ×5 (06:02→22:06)
[2022-10-25] MEDS: INSULIN (LEVEMIR) 100 UNITS/ML UNITS SQ SCH (06:02)
[2022-10-25 08:37] LABS: BASO % 0.9 % (0-2.0); EOS % 1.1 % (0-4.5); HEMATOCRIT 29.8 % (32.4-45.2); HEMOGLOBIN 9.5 GM/dL (10.7-15.3); LYMPH % 11.3 % (8-40); MCH 27.6 pg (25.7-33.7); MCHC 31.8 g/dl (32.0-36.0); MEAN CELL VOLUME 86.8 fl (80-96); MEAN PLT VOLUME 8.9 fl (7.5-11.1); MONO % 8.1 % (3.8-10.2); NEUT % 78.6 % (42.8-82.8); PLATELET COUNT 274 10^3/uL (134-434); RBC 3.43 M/mm3 (3.60-5.2); RDW 17.6 % (11.6-15.6); WHITE BLOOD COUNT 12.5 K/mm3 (4.0-10.0)
[2022-10-25 08:55] LABS: BLOOD UREA NITROGEN 17.9 mg/dL (7-18); CALCIUM 8.2 mg/dL (8.5-10.1)
[2022-10-25 08:59] LABS: CREATININE 0.8 mg/dL (0.55-1.3)
[2022-10-25] MEDS: FERROUS SO4 325 MG TABLET (FP) PO SCH (09:56)
[2022-10-25] MEDS: AMINO ACIDS/PROTEIN HYDROLYS 30 ML LIQUID.PKT PO SCH ×3 (09:56→18:13)
[2022-10-25] MEDS: SENNOSIDES 8.6MG TABLET (FP) PO SCH ×3 (09:56→22:06)
[2022-10-25] MEDS: PANTOPRAZOLE 40 MG TABLET PO SCH (09:56)
[2022-10-25] MEDS: VITAMIN B COMP W-C 1 EA TABLET (NEPHRO-VITE) PO SCH (09:57)
[2022-10-25] MEDS: CARVEDILOL 3.125 MG TABLET (FP) PO SCH ×3 (09:57→22:06)
[2022-10-25] MEDS: ZINC SULFATE 220 MG CAPSULE (FP) PO SCH (10:24)
[2022-10-25] MEDS: ATORVASTATIN CA 10 MG TABLET (FP) PO SCH ×2 (21:43→22:06)
[2022-10-25] MEDS ORDERED: PHENYLEPHRINE HCL/COCOA BUTTER SUPPOSITORY RC PRN (21:54)
[2022-10-26] MEDS: MEROPENEM 1 GM in DEXTROSE 5%-WATER 100 ML IVPB SCH ×3 (02:45→17:19)
[2022-10-26] MEDS: INSULIN (LEVEMIR) 100 UNITS/ML UNITS SQ SCH (07:00)
[2022-10-26] MEDS: INSULIN SLIDING SCALE (NOVOLOG) 1 VIAL SQ SCH ×4 (07:01→23:05)
[2022-10-26] MEDS: AMINO ACIDS/PROTEIN HYDROLYS 30 ML LIQUID.PKT PO SCH ×3 (08:30→17:19)
[2022-10-26 09:25] LABS: BASO % 0.6 % (0-2.0); EOS % 1.1 % (0-4.5); HEMATOCRIT 33.8 % (32.4-45.2); HEMOGLOBIN 10.6 GM/dL (10.7-15.3); LYMPH % 12.8 % (8-40); MCH 27.4 pg (25.7-33.7); MCHC 31.3 g/dl (32.0-36.0); MEAN CELL VOLUME 87.4 fl (80-96); MEAN PLT VOLUME 9.1 fl (7.5-11.1); MONO % 7.2 % (3.8-10.2); NEUT % 78.3 % (42.8-82.8); PLATELET COUNT 338 10^3/uL (134-434); RBC 3.87 M/mm3 (3.60-5.2); RDW 17.7 % (11.6-15.6); WHITE BLOOD COUNT 12.3 K/mm3 (4.0-10.0)
[2022-10-26 09:53] LABS: ALBUMIN 2.4 g/dl (3.4-5.0)
[2022-10-26 09:54] LABS: CALCIUM 8.7 mg/dL (8.5-10.1); MAGNESIUM 2.4 mg/dL (1.8-2.4)
[2022-10-26 09:56] LABS: CREATININE 0.8 mg/dL (0.55-1.3); PHOSPHOROUS 2.2 mg/dL (2.5-4.9)
[2022-10-26 09:57] LABS: TOT PROT 6.8 g/dl (6.4-8.2)
[2022-10-26 09:58] LABS: BILIRUBIN,TOTAL 0.5 mg/dL (0.2-1)
[2022-10-26] MEDS: ZINC SULFATE 220 MG CAPSULE (FP) PO SCH (10:35)
[2022-10-26] MEDS: VITAMIN B COMP W-C 1 EA TABLET (NEPHRO-VITE) PO SCH (10:35)
[2022-10-26] MEDS: PANTOPRAZOLE 40 MG TABLET PO SCH (10:35)
[2022-10-26] MEDS: FERROUS SO4 325 MG TABLET (FP) PO SCH (10:35)
[2022-10-26] MEDS: CARVEDILOL 3.125 MG TABLET (FP) PO SCH ×2 (10:35→23:06)
[2022-10-26] MEDS: SENNOSIDES 8.6MG TABLET (FP) PO SCH ×2 (10:35→23:06)
[2022-10-26] MEDS: ATORVASTATIN CA 10 MG TABLET (FP) PO SCH (23:06)
[2022-10-27] MEDS: INSULIN (LEVEMIR) 100 UNITS/ML UNITS SQ SCH (07:42)
[2022-10-27 09:56] LABS: BASO % 0.9 % (0-2.0); EOS % 1.8 % (0-4.5); HEMATOCRIT 32.6 % (32.4-45.2); HEMOGLOBIN 10.5 GM/dL (10.7-15.3); MCH 27.8 pg (25.7-33.7); MCHC 32.1 g/dl (32.0-36.0); MEAN CELL VOLUME 86.8 fl (80-96); MONO % 6.7 % (3.8-10.2); NEUT % 75.6 % (42.8-82.8); PLATELET COUNT 337 10^3/uL (134-434); RBC 3.76 M/mm3 (3.60-5.2); RDW 17.5 % (11.6-15.6); WHITE BLOOD COUNT 10.2 K/mm3 (4.0-10.0)
[2022-10-27 10:07] LABS: INR 1.13 (0.83-1.09)
[2022-10-27 10:10] LABS: ACTIVATED PTT 29.9 SECONDS (25.2-36.5)
[2022-10-27 10:26] LABS: CALCIUM 8.4 mg/dL (8.5-10.1)
[2022-10-27 10:27] LABS: BLOOD UREA NITROGEN 15.2 mg/dL (7-18)
[2022-10-27 10:29] LABS: CREATININE 0.7 mg/dL (0.55-1.3)
[2022-10-27] MEDS: ZINC SULFATE 220 MG CAPSULE (FP) PO SCH (11:11)
[2022-10-27] MEDS: AMINO ACIDS/PROTEIN HYDROLYS 30 ML LIQUID.PKT PO SCH ×3 (11:11→17:28)
[2022-10-27] MEDS: CARVEDILOL 3.125 MG TABLET (FP) PO SCH ×2 (11:11→22:43)
[2022-10-27] MEDS: PANTOPRAZOLE 40 MG TABLET PO SCH (11:11)
[2022-10-27] MEDS: SENNOSIDES 8.6MG TABLET (FP) PO SCH ×2 (11:12→22:44)
[2022-10-27] MEDS: FERROUS SO4 325 MG TABLET (FP) PO SCH (11:12)
[2022-10-27] MEDS: VITAMIN B COMP W-C 1 EA TABLET (NEPHRO-VITE) PO SCH (11:12)
[2022-10-27] MEDS: MEROPENEM 1 GM in DEXTROSE 5%-WATER 100 ML IVPB SCH (11:16)
[2022-10-27] MEDS: INSULIN SLIDING SCALE (NOVOLOG) 1 VIAL SQ SCH ×3 (11:17→22:45)
[2022-10-27] MEDS: ATORVASTATIN CA 10 MG TABLET (FP) PO SCH (22:43)
[2022-10-28] MEDS: MEROPENEM 1 GM in DEXTROSE 5%-WATER 100 ML IVPB SCH ×2 (02:57→02:58)
[2022-10-28] MEDS: INSULIN (LEVEMIR) 100 UNITS/ML UNITS SQ SCH (06:57)
[2022-10-28] MEDS: INSULIN SLIDING SCALE (NOVOLOG) 1 VIAL SQ SCH ×3 (06:57→21:24)
[2022-10-28 09:18] LABS: BASO % 0.7 % (0-2.0); EOS % 2.3 % (0-4.5); HEMATOCRIT 32.1 % (32.4-45.2); HEMOGLOBIN 10.3 GM/dL (10.7-15.3); MCH 27.8 pg (25.7-33.7); MEAN CELL VOLUME 86.7 fl (80-96); PLATELET COUNT 334 10^3/uL (134-434); RDW 17.4 % (11.6-15.6); WHITE BLOOD COUNT 8.3 K/mm3 (4.0-10.0)
[2022-10-28] MEDS: FERROUS SO4 325 MG TABLET (FP) PO SCH (09:44)
[2022-10-28] MEDS: ZINC SULFATE 220 MG CAPSULE (FP) PO SCH (09:44)
[2022-10-28] MEDS: VITAMIN B COMP W-C 1 EA TABLET (NEPHRO-VITE) PO SCH (09:44)
[2022-10-28] MEDS: AMINO ACIDS/PROTEIN HYDROLYS 30 ML LIQUID.PKT PO SCH ×3 (09:44→16:50)
[2022-10-28] MEDS: CARVEDILOL 3.125 MG TABLET (FP) PO SCH ×2 (09:44→22:05)
[2022-10-28] MEDS: PANTOPRAZOLE 40 MG TABLET PO SCH (09:44)
[2022-10-28] MEDS: SENNOSIDES 8.6MG TABLET (FP) PO SCH (09:45)
[2022-10-28 09:46] LABS: CALCIUM 8.6 mg/dL (8.5-10.1)
[2022-10-28 09:47] LABS: ALBUMIN 2.3 g/dl (3.4-5.0); BLOOD UREA NITROGEN 15.8 mg/dL (7-18)
[2022-10-28 09:48] LABS: MAGNESIUM 2.2 mg/dL (1.8-2.4)
[2022-10-28 09:50] LABS: CREATININE 0.8 mg/dL (0.55-1.3); PHOSPHOROUS 2.7 mg/dL (2.5-4.9)
[2022-10-28 09:52] LABS: BILIRUBIN,TOTAL 0.5 mg/dL (0.2-1); TOT PROT 6.3 g/dl (6.4-8.2)
[2022-10-28] MEDS ORDERED: FENTANYL CITRATE/PF 50 MCG/ML VIAL ONE ×3 (11:48→13:27)
[2022-10-28] MEDS ORDERED: PROPOFOL 20 ML ONE (11:48)
[2022-10-28] MEDS ORDERED: ceFAZolin SODIUM 1 GM VIAL IVPB ONE (12:23)
[2022-10-28] MEDS ORDERED: PHENYLEPHRINE HCL 10 MG/1 ML SINGLE DOSE VIAL ONE (12:25)
[2022-10-28] MEDS ORDERED: ACETAMINOPHEN 1000 MG/100 ML BAG IVPB ONE (13:07)
[2022-10-28] MEDS ORDERED: ONDANSETRON 4 MG/2 ML VIAL IVPUSH PRN (13:07)
[2022-10-28] MEDS ORDERED: LACTATED RINGERS SOLUTION 1,000 ML IV SCH (13:15)
[2022-10-28] MEDS ORDERED: ACETAMINOPHEN INJECTION 100 ML IVPB ONE (13:27)
[2022-10-28] MEDS ORDERED: ACETAMINOPHEN 500 MG TABLET (FP) PO PRN (15:29)
[2022-10-28] MEDS: oxyCODONE HCL 5 MG TABLET PO PRN (22:05)
[2022-10-28] MEDS: ATORVASTATIN CA 10 MG TABLET (FP) PO SCH (22:05)
[2022-10-29] MEDS: INSULIN SLIDING SCALE (NOVOLOG) 1 VIAL SQ SCH ×4 (06:02→21:53)
[2022-10-29] MEDS: AMINO ACIDS/PROTEIN HYDROLYS 30 ML LIQUID.PKT PO SCH ×3 (11:29→18:13)
[2022-10-29] MEDS: FERROUS SO4 325 MG TABLET (FP) PO SCH (11:30)
[2022-10-29] MEDS: MULTIVITAMINS (DAILY MVI) TABLET (FP) PO SCH (11:30)
[2022-10-29] MEDS: CARVEDILOL 3.125 MG TABLET (FP) PO SCH ×2 (11:30→21:52)
[2022-10-29] MEDS ORDERED: INSULIN (NOVOLOG) ASPART 100 UNITS/ML 10ML VIAL ONE (11:50)
[2022-10-29 13:53] LABS: BASO % 0.5 % (0-2.0); EOS % 0.4 % (0-4.5); HEMATOCRIT 30.1 % (32.4-45.2); HEMOGLOBIN 9.5 GM/dL (10.7-15.3); LYMPH % 16.8 % (8-40); MCH 27.7 pg (25.7-33.7); MCHC 31.6 g/dl (32.0-36.0); MEAN CELL VOLUME 87.7 fl (80-96); MEAN PLT VOLUME 9.1 fl (7.5-11.1); MONO % 11.4 % (3.8-10.2); NEUT % 70.9 % (42.8-82.8); PLATELET COUNT 315 10^3/uL (134-434); RBC 3.44 M/mm3 (3.60-5.2); RDW 17.3 % (11.6-15.6)
[2022-10-29 14:10] LABS: CALCIUM 8.5 mg/dL (8.5-10.1)
[2022-10-29 14:11] LABS: BLOOD UREA NITROGEN 26.3 mg/dL (7-18)
[2022-10-29 14:14] LABS: CREATININE 0.9 mg/dL (0.55-1.3)
[2022-10-29] MEDS: ATORVASTATIN CA 10 MG TABLET (FP) PO SCH (21:52)
[2022-10-30] MEDS: INSULIN SLIDING SCALE (NOVOLOG) 1 VIAL SQ SCH ×4 (06:36→23:09)
[2022-10-30 09:36] LABS: BASO % 0.8 % (0-2.0); EOS % 0.8 % (0-4.5); HEMATOCRIT 31.6 % (32.4-45.2); HEMOGLOBIN 10.3 GM/dL (10.7-15.3); LYMPH % 21.4 % (8-40); MCH 28.5 pg (25.7-33.7); MCHC 32.6 g/dl (32.0-36.0); MEAN CELL VOLUME 87.5 fl (80-96); MEAN PLT VOLUME 8.8 fl (7.5-11.1); MONO % 11.1 % (3.8-10.2); NEUT % 65.9 % (42.8-82.8); PLATELET COUNT 291 10^3/uL (134-434); RBC 3.61 M/mm3 (3.60-5.2); RDW 17.6 % (11.6-15.6); WHITE BLOOD COUNT 6.9 K/mm3 (4.0-10.0)
[2022-10-30 09:49] LABS: CALCIUM 8.7 mg/dL (8.5-10.1)
[2022-10-30 09:53] LABS: CREATININE 0.7 mg/dL (0.55-1.3)
[2022-10-30] MEDS: APIXABAN 5 MG TABLET PO SCH ×2 (10:08→23:09)
[2022-10-30] MEDS: MULTIVITAMINS (DAILY MVI) TABLET (FP) PO SCH (10:08)
[2022-10-30] MEDS: CARVEDILOL 3.125 MG TABLET (FP) PO SCH ×2 (10:08→23:09)
[2022-10-30] MEDS: oxyCODONE HCL 5 MG TABLET PO PRN (10:08)
[2022-10-30] MEDS: AMINO ACIDS/PROTEIN HYDROLYS 30 ML LIQUID.PKT PO SCH ×3 (10:09→17:19)
[2022-10-30] MEDS: FERROUS SO4 325 MG TABLET (FP) PO SCH (10:09)
[2022-10-30] MEDS: ATORVASTATIN CA 10 MG TABLET (FP) PO SCH (23:09)
[2022-10-31] MEDS: INSULIN SLIDING SCALE (NOVOLOG) 1 VIAL SQ SCH ×4 (06:59→23:14)
[2022-10-31 09:36] LABS: BASO % 0.9 % (0-2.0); EOS % 1.7 % (0-4.5); HEMATOCRIT 29.8 % (32.4-45.2); HEMOGLOBIN 9.8 GM/dL (10.7-15.3); LYMPH % 21.1 % (8-40); MCH 28.5 pg (25.7-33.7); MCHC 32.9 g/dl (32.0-36.0); MEAN CELL VOLUME 86.8 fl (80-96); MEAN PLT VOLUME 8.3 fl (7.5-11.1); NEUT % 64.3 % (42.8-82.8); PLATELET COUNT 267 10^3/uL (134-434); RBC 3.43 M/mm3 (3.60-5.2); RDW 17.6 % (11.6-15.6); WHITE BLOOD COUNT 7.3 K/mm3 (4.0-10.0)
[2022-10-31] MEDS: CLOPIDOGREL BISULFATE 75 MG TABLET (FP) PO SCH (09:36)
[2022-10-31] MEDS: CARVEDILOL 3.125 MG TABLET (FP) PO SCH ×2 (09:36→23:15)
[2022-10-31] MEDS: AMINO ACIDS/PROTEIN HYDROLYS 30 ML LIQUID.PKT PO SCH ×3 (09:36→17:44)
[2022-10-31] MEDS: APIXABAN 5 MG TABLET PO SCH ×2 (09:36→23:15)
[2022-10-31] MEDS: FERROUS SO4 325 MG TABLET (FP) PO SCH (09:36)
[2022-10-31] MEDS: MULTIVITAMINS (DAILY MVI) TABLET (FP) PO SCH (09:36)
[2022-10-31] MEDS: oxyCODONE HCL 5 MG TABLET PO PRN (09:36)
[2022-10-31] MEDS: INSULIN (LEVEMIR) 100 UNITS/ML UNITS SQ SCH (09:38)
[2022-10-31 10:37] LABS: BLOOD UREA NITROGEN 19.5 mg/dL (7-18); CALCIUM 8.8 mg/dL (8.5-10.1)
[2022-10-31 10:40] LABS: CREATININE 0.7 mg/dL (0.55-1.3)
[2022-10-31] MEDS: ATORVASTATIN CA 10 MG TABLET (FP) PO SCH (23:15)
[2022-11-01] MEDS: INSULIN SLIDING SCALE (NOVOLOG) 1 VIAL SQ SCH ×3 (06:07→18:28)
[2022-11-01] MEDS: AMINO ACIDS/PROTEIN HYDROLYS 30 ML LIQUID.PKT PO SCH ×3 (10:11→18:29)
[2022-11-01] MEDS: APIXABAN 5 MG TABLET PO SCH (10:12)
[2022-11-01] MEDS: CARVEDILOL 3.125 MG TABLET (FP) PO SCH (10:12)
[2022-11-01] MEDS: CLOPIDOGREL BISULFATE 75 MG TABLET (FP) PO SCH (10:12)
[2022-11-01] MEDS: MULTIVITAMINS (DAILY MVI) TABLET (FP) PO SCH (10:12)
[2022-11-01] MEDS: FERROUS SO4 325 MG TABLET (FP) PO SCH (10:12)
[2022-11-01] MEDS: INSULIN (LEVEMIR) 100 UNITS/ML UNITS SQ SCH (10:15)
[2022-11-01 12:00] LABS: BASO % 0.9 % (0-2.0); EOS % 1.9 % (0-4.5); HEMATOCRIT 30.2 % (32.4-45.2); HEMOGLOBIN 9.7 GM/dL (10.7-15.3); MCH 27.8 pg (25.7-33.7); MEAN CELL VOLUME 86.9 fl (80-96); MEAN PLT VOLUME 8.9 fl (7.5-11.1); MONO % 8.2 % (3.8-10.2); PLATELET COUNT 256 10^3/uL (134-434); RBC 3.47 M/mm3 (3.60-5.2); RDW 17.3 % (11.6-15.6); WHITE BLOOD COUNT 7.1 K/mm3 (4.0-10.0)
[2022-11-01 12:27] LABS: CALCIUM 8.7 mg/dL (8.5-10.1)
[2022-11-01 12:31] LABS: CREATININE 0.8 mg/dL (0.55-1.3)
[2022-11-01 14:20] VITALS: BP 122/72; PULSE 106; RESP 18; TEMP 98.4
== END 2022-11-01 18:25 | DRG 668 ==
LOC: JER 18:40 → JERBED 10-08 00:13 → J4W 10-09 21:19 → J4S 10-20 18:30 → J7W 10-25 16:33
PROVIDERS: ADMIT Family Medicine; ATTEND Internal Medicine
PROC: BT00ZZZ Plain Radiography of Bladder (ICD-10-PCS; 2022-10-14)
PROC: 0TCB8ZZ Extirpation of Matter from Bladder, Via Natural or Artificial Opening Endoscopic (ICD-10-PCS; 2022-10-14)
PROC: 0T9B80Z Drainage of Bladder with Drainage Device, Via Natural or Artificial Opening Endoscopic (ICD-10-PCS; 2022-10-14)
PROC: 0TJB8ZZ Inspection of Bladder, Via Natural or Artificial Opening Endoscopic (ICD-10-PCS; principal; 2022-10-14 13:30)
PROC: 0TBB8ZZ Excision of Bladder, Via Natural or Artificial Opening Endoscopic (ICD-10-PCS; 2022-10-28 15:00)
DX: N32.89 Other specified disorders of bladder (principal); E43 Unspecified severe protein-calorie malnutrition; N17.9 Acute kidney failure, unspecified; I13.0 Hypertensive heart and chronic kidney disease with heart failure and stage 1 through stage 4 chronic kidney disease, or unspecified chronic kidney disease; N39.0 Urinary tract infection, site not specified; I50.22 Chronic systolic (congestive) heart failure; I24.8 Other forms of acute ischemic heart disease; D49.4 Neoplasm of unspecified behavior of bladder; K21.9 Gastro-esophageal reflux disease without esophagitis; E78.5 Hyperlipidemia, unspecified; E11.22 Type 2 diabetes mellitus with diabetic chronic kidney disease; N18.9 Chronic kidney disease, unspecified; I48.91 Unspecified atrial fibrillation; I25.10 Atherosclerotic heart disease of native coronary artery without angina pectoris; N31.9 Neuromuscular dysfunction of bladder, unspecified; Z68.25 Body mass index [BMI] 25.0-25.9, adult; I25.5 Ischemic cardiomyopathy; R50.9 Fever, unspecified; R07.89 Other chest pain; D72.829 Elevated white blood cell count, unspecified; R31.0 Gross hematuria; B96.20 Unspecified Escherichia coli [E. coli] as the cause of diseases classified elsewhere; Z95.810 Presence of automatic (implantable) cardiac defibrillator; Z85.3 Personal history of malignant neoplasm of breast
CPT/HCPCS: 0241U-QW; 36415; 71045-TC-FY; 72194-TC; 74176-TC; 76000-TC-FY; 76775-TC; 76856-TC; 80048; 80053; 81003; 82272; 82962; 83605; 83735; 84100; 84484; 85025; 85027; 85610; 85730; 86850; 86900; 86901; 87040; 87086; 87186; 88307-TC; 93005; 93010; 93306-TC; 94010; 94760; 99285-25; C9803-CS; E0186; J1644; Q9967; U0003; U0005

== ENCOUNTER 2022-11-21 09:19 | Inpatient (IN) | payer OTHER ==
[2022-11-21] MEDS ORDERED: SODIUM CHLORIDE 1,000 ML IV STA (09:56)
[2022-11-21 09:59] VITALS: BMI 19.3
[2022-11-21] MEDS ORDERED: SODIUM CHLORIDE 500 ML IV STA (11:33)
[2022-11-21 11:34] LABS: BASO % 0.3 % (0-2.0); EOS % 0.3 % (0-4.5); HEMATOCRIT 30.5 % (32.4-45.2); HEMOGLOBIN 9.7 GM/dL (10.7-15.3); LYMPH % 8.6 % (8-40); MCH 26.4 pg (25.7-33.7); MCHC 31.7 g/dl (32.0-36.0); MEAN CELL VOLUME 83.2 fl (80-96); MEAN PLT VOLUME 9.6 fl (7.5-11.1); MONO % 12.2 % (3.8-10.2); NEUT % 78.6 % (42.8-82.8); PLATELET COUNT 218 10^3/uL (134-434); RBC 3.67 M/mm3 (3.60-5.2); RDW 16.7 % (11.6-15.6); WHITE BLOOD COUNT 9.2 K/mm3 (4.0-10.0)
[2022-11-21 11:42] LABS: INR 1.31 (0.83-1.09); PROTHROMBIN TIME (PATIENT) 15.1 SEC (9.7-13.0)
[2022-11-21 11:45] LABS: ACTIVATED PTT 21.8 SECONDS (25.2-36.5)
[2022-11-21 11:50] LABS: CHLORIDE 97 mmol/L (98-107); SODIUM 135 mmol/L (136-145)
[2022-11-21 11:52] LABS: GLUCOSE,RANDOM 394 mg/dL (74-106)
[2022-11-21 11:53] LABS: ALBUMIN 2.7 g/dl (3.4-5.0); ANION GAP 10 MMOL/L (8-16); CALCIUM 8.7 mg/dL (8.5-10.1); CO2 28 mmol/L (21-32); MAGNESIUM 2.8 mg/dL (1.8-2.4)
[2022-11-21 11:55] LABS: CREATININE 1.6 mg/dL (0.55-1.3); SGPT/ALT 16 U/L (13-61)
[2022-11-21 11:56] LABS: SGOT/AST 15 U/L (15-37)
[2022-11-21 11:57] LABS: BILIRUBIN,TOTAL 0.6 mg/dL (0.2-1); TOT PROT 7.4 g/dl (6.4-8.2)
[2022-11-21 11:58] LABS: ALK PHOS 157 U/L (45-117)
[2022-11-21] MEDS ORDERED: ACETAMINOPHEN INJECTION 100 ML IVPB ONE (12:31)
[2022-11-21] MEDS ORDERED: ACETAMINOPHEN 1000 MG/100 ML BAG IVPB ONE (12:31)
[2022-11-21 12:44] LABS: ARTERIAL BLD GAS O2 SATURATION 18.2 % (95-98); ARTERIAL BLOOD GAS BASE EXCESS 2.4 mmol/L (-2-2); ARTERIAL BLOOD GAS pH 7.363 (7.350-7.450)
[2022-11-21] MEDS ORDERED: ASPIRIN 325 MG TABLET PO ONE (12:47)
[2022-11-21] MEDS ORDERED: ASPIRIN 325 MG TABLET ONE (12:56)
[2022-11-21] MEDS ORDERED: [UNRECOGNIZED DRUG - REMARK] TP PRN (13:58)
[2022-11-21] MEDS ORDERED: MEROPENEM 500 MG in DEXTROSE 5%-WATER 100 ML IVPB ONE (14:23)
[2022-11-21] MEDS ORDERED: MEROPENEM 500 MG VIAL (RESTRICTED TO ID) IVPB ONE (14:29)
[2022-11-21 14:37] LABS: N-TERMINAL BNP 23105.5 pg/ml (5-450)
[2022-11-21 14:55] LABS: URINE APPEARANCE TURBID; URINE BILIRUBIN NEGATIVE (NEGATIVE); URINE COLOR YELLOW; URINE GLUCOSE (UA) 500 mg/dl (NEGATIVE); URINE KETONE NEGATIVE (NEGATIVE)
[2022-11-21 14:56] LABS: URINE LEUK ESTERASE 3+ (NEGATIVE); URINE NITRITE POSITIVE (NEGATIVE); URINE PROTEIN 100 (NEGATIVE); URINE UROBILINOGEN 0.2 mg/dL (0.2-1.0)
[2022-11-21 15:17] LABS: EPI CELLS 281.1 /uL (0-25.1); HYALINE CASTS 613.5 /uL (0-3.1); URINE BACTERIA 12906.7 /uL (0-1359); URINE RBC 928.8 /uL (0-23.9); URINE WBC 28286.9 /uL (0-25.8)
[2022-11-21] MEDS: PANTOPRAZOLE 40 MG TABLET PO SCH (21:53)
[2022-11-21] MEDS: CARVEDILOL 3.125 MG TABLET (FP) PO SCH (21:53)
[2022-11-21] MEDS: APIXABAN 2.5 MG TABLET PO SCH (21:54)
[2022-11-21] MEDS: ATORVASTATIN CA 10 MG TABLET (FP) PO SCH (21:54)
[2022-11-21] MEDS: SENNOSIDES 8.6MG TABLET (FP) PO SCH (21:55)
[2022-11-22] MEDS: CARVEDILOL 3.125 MG TABLET (FP) PO SCH ×2 (09:28→21:13)
[2022-11-22] MEDS: APIXABAN 2.5 MG TABLET PO SCH ×2 (09:28→21:13)
[2022-11-22] MEDS: PANTOPRAZOLE 40 MG TABLET PO SCH ×2 (09:28→21:13)
[2022-11-22] MEDS: FERROUS SO4 325 MG TABLET (FP) PO SCH (09:28)
[2022-11-22] MEDS: SENNOSIDES 8.6MG TABLET (FP) PO SCH ×3 (09:28→21:14)
[2022-11-22] MEDS ORDERED: CLOPIDOGREL BISULFATE 75 MG TABLET (FP) PO SCH (10:00)
[2022-11-22] MEDS ORDERED: PATIENT'S OWN MEDICATION (NON-FORMULARY) (Empagliflozin 25 MG Tablet) PO SCH (10:00)
[2022-11-22] MEDS: ERTAPENEM SODIUM 0.5 GM in SODIUM CHLORIDE 50 ML IVPB SCH (11:01)
[2022-11-22 12:12] LABS: BASO % 0.3 % (0-2.0); EOS % 1.2 % (0-4.5); HEMATOCRIT 28.9 % (32.4-45.2); LYMPH % 17.9 % (8-40); MCH 26.2 pg (25.7-33.7); MCHC 31.3 g/dl (32.0-36.0); MEAN CELL VOLUME 83.6 fl (80-96); MEAN PLT VOLUME 9.5 fl (7.5-11.1); MONO % 16.1 % (3.8-10.2); NEUT % 64.5 % (42.8-82.8); PLATELET COUNT 201 10^3/uL (134-434); RBC 3.45 M/mm3 (3.60-5.2); RDW 16.6 % (11.6-15.6)
[2022-11-22 12:35] LABS: CALCIUM 8.7 mg/dL (8.5-10.1)
[2022-11-22 12:36] LABS: ALBUMIN 2.6 g/dl (3.4-5.0); BLOOD UREA NITROGEN 39.1 mg/dL (7-18)
[2022-11-22 12:39] LABS: CREATININE 1.2 mg/dL (0.55-1.3)
[2022-11-22 12:41] LABS: BILIRUBIN,TOTAL 0.6 mg/dL (0.2-1); TOT PROT 6.9 g/dl (6.4-8.2)
[2022-11-22] MEDS ORDERED: FLU VACC QS2022-23(6MOS UP)/PF 60 MCG/0.5 ML SYRINGE IM ONE (14:00)
[2022-11-22] MEDS: COLLAGENASE CLOSTRIDIUM HIST. 30 GRAMS TUBE TP SCH (15:49)
[2022-11-22] MEDS: ATORVASTATIN CA 10 MG TABLET (FP) PO SCH (21:13)
[2022-11-23 08:01] LABS: BASO % 0.7 % (0-2.0); EOS % 0.9 % (0-4.5); HEMATOCRIT 32.8 % (32.4-45.2); HEMOGLOBIN 10.2 GM/dL (10.7-15.3); LYMPH % 19.8 % (8-40); MCH 26.1 pg (25.7-33.7); MCHC 31.2 g/dl (32.0-36.0); MEAN CELL VOLUME 83.8 fl (80-96); MEAN PLT VOLUME 9.5 fl (7.5-11.1); MONO % 18.8 % (3.8-10.2); NEUT % 59.8 % (42.8-82.8); PLATELET COUNT 229 10^3/uL (134-434); RBC 3.91 M/mm3 (3.60-5.2); RDW 16.5 % (11.6-15.6); WHITE BLOOD COUNT 5.8 K/mm3 (4.0-10.0)
[2022-11-23] MEDS ORDERED: ACETAMINOPHEN 500 MG TABLET (FP) PO ONE (08:30)
[2022-11-23 08:42] LABS: BLOOD UREA NITROGEN 27.8 mg/dL (7-18); CALCIUM 8.7 mg/dL (8.5-10.1); MAGNESIUM 2.6 mg/dL (1.8-2.4); PHOSPHOROUS 2.2 mg/dL (2.5-4.9)
[2022-11-23] MEDS: APIXABAN 2.5 MG TABLET PO SCH (10:18)
[2022-11-23] MEDS: FERROUS SO4 325 MG TABLET (FP) PO SCH (10:19)
[2022-11-23] MEDS: ERTAPENEM SODIUM 0.5 GM in SODIUM CHLORIDE 50 ML IVPB SCH (10:19)
[2022-11-23] MEDS: COLLAGENASE CLOSTRIDIUM HIST. 30 GRAMS TUBE TP SCH (10:19)
[2022-11-23] MEDS: PANTOPRAZOLE 40 MG TABLET PO SCH ×2 (10:19→21:18)
[2022-11-23] MEDS: POLYETHYLENE GLYCOL (HEALTHYLAX) 3350 17 GM PACKET PO SCH (10:20)
[2022-11-23] MEDS: SENNOSIDES 8.6MG TABLET (FP) PO SCH ×2 (10:20→21:18)
[2022-11-23] MEDS: CARVEDILOL 3.125 MG TABLET (FP) PO SCH (10:21)
[2022-11-23] MEDS ORDERED: SODIUM CHLORIDE 250 ML IV STA (10:25)
[2022-11-23] MEDS: ATORVASTATIN CA 10 MG TABLET (FP) PO SCH (21:18)
[2022-11-24 07:27] LABS: BASO % 0.9 % (0-2.0); EOS % 0.8 % (0-4.5); HEMATOCRIT 32.1 % (32.4-45.2); LYMPH % 22.3 % (8-40); MCH 25.8 pg (25.7-33.7); MEAN CELL VOLUME 83.3 fl (80-96); MONO % 18.6 % (3.8-10.2); NEUT % 57.4 % (42.8-82.8); PLATELET COUNT 235 10^3/uL (134-434); RBC 3.86 M/mm3 (3.60-5.2); RDW 16.5 % (11.6-15.6); WHITE BLOOD COUNT 5.7 K/mm3 (4.0-10.0)
[2022-11-24 07:59] LABS: BLOOD UREA NITROGEN 21.6 mg/dL (7-18); CALCIUM 8.8 mg/dL (8.5-10.1); MAGNESIUM 2.4 mg/dL (1.8-2.4)
[2022-11-24 08:03] LABS: CREATININE 1.1 mg/dL (0.55-1.3); PHOSPHOROUS 2.5 mg/dL (2.5-4.9)
[2022-11-24] MEDS: PANTOPRAZOLE 40 MG TABLET PO SCH ×2 (10:27→21:11)
[2022-11-24] MEDS: FERROUS SO4 325 MG TABLET (FP) PO SCH (10:27)
[2022-11-24] MEDS: METOPROLOL TARTRATE 25 MG TABLET (FP) PO SCH ×3 (10:27→21:18)
[2022-11-24] MEDS: LACTOBACILLUS ACIDOPHILUS 1 TABLET PO SCH (10:27)
[2022-11-24] MEDS: SENNOSIDES 8.6MG TABLET (FP) PO SCH ×2 (10:28→21:11)
[2022-11-24] MEDS: ERTAPENEM SODIUM 0.5 GM in SODIUM CHLORIDE 50 ML IVPB SCH (10:31)
[2022-11-24] MEDS: POLYETHYLENE GLYCOL (HEALTHYLAX) 3350 17 GM PACKET PO SCH (10:31)
[2022-11-24] MEDS: COLLAGENASE CLOSTRIDIUM HIST. 30 GRAMS TUBE TP SCH (10:54)
[2022-11-24] MEDS ORDERED: SODIUM CHLORIDE 0.45% 1,000 ML IV SCH (12:00)
[2022-11-24] MEDS: ATORVASTATIN CA 10 MG TABLET (FP) PO SCH (21:10)
[2022-11-24] MEDS: MIRTAZAPINE 15 MG TABLET (FP) PO SCH (21:12)
[2022-11-25 07:44] LABS: HEMATOCRIT 28.7 % (32.4-45.2); MCHC 31.2 g/dl (32.0-36.0); MEAN CELL VOLUME 83.5 fl (80-96); MEAN PLT VOLUME 8.8 fl (7.5-11.1); PLATELET COUNT 185 10^3/uL (134-434); RBC 3.44 M/mm3 (3.60-5.2); RDW 16.3 % (11.6-15.6); WHITE BLOOD COUNT 6.2 K/mm3 (4.0-10.0)
[2022-11-25 08:31] LABS: ALBUMIN 2.2 g/dl (3.4-5.0); BLOOD UREA NITROGEN 17.8 mg/dL (7-18)
[2022-11-25 08:34] LABS: CREATININE 0.8 mg/dL (0.55-1.3)
[2022-11-25 08:35] LABS: BILIRUBIN,TOTAL 0.6 mg/dL (0.2-1)
[2022-11-25 08:36] LABS: TOT PROT 5.9 g/dl (6.4-8.2)
[2022-11-25 09:00] LABS: CALCIUM 7.4 mg/dL (8.5-10.1)
[2022-11-25] MEDS: METOPROLOL TARTRATE 25 MG TABLET (FP) PO SCH ×2 (10:08→21:30)
[2022-11-25] MEDS: SENNOSIDES 8.6MG TABLET (FP) PO SCH ×3 (10:08→21:31)
[2022-11-25] MEDS: FERROUS SO4 325 MG TABLET (FP) PO SCH (10:08)
[2022-11-25] MEDS: ERTAPENEM SODIUM 0.5 GM in SODIUM CHLORIDE 50 ML IVPB SCH (10:09)
[2022-11-25] MEDS: PANTOPRAZOLE 40 MG TABLET PO SCH ×2 (10:09→21:31)
[2022-11-25] MEDS: POLYETHYLENE GLYCOL (HEALTHYLAX) 3350 17 GM PACKET PO SCH (10:09)
[2022-11-25] MEDS: LACTOBACILLUS ACIDOPHILUS 1 TABLET PO SCH (10:09)
[2022-11-25] MEDS: COLLAGENASE CLOSTRIDIUM HIST. 30 GRAMS TUBE TP SCH (10:55)
[2022-11-25] MEDS: MIRTAZAPINE 15 MG TABLET (FP) PO SCH (21:29)
[2022-11-25] MEDS: ATORVASTATIN CA 10 MG TABLET (FP) PO SCH (21:30)
[2022-11-26 08:32] LABS: BASO % 0.8 % (0-2.0); EOS % 0.6 % (0-4.5); HEMATOCRIT 35.6 % (32.4-45.2); LYMPH % 21.2 % (8-40); MCH 25.8 pg (25.7-33.7); MCHC 30.8 g/dl (32.0-36.0); MEAN CELL VOLUME 83.8 fl (80-96); MEAN PLT VOLUME 9.1 fl (7.5-11.1); MONO % 15.3 % (3.8-10.2); NEUT % 62.1 % (42.8-82.8); PLATELET COUNT 241 10^3/uL (134-434); RBC 4.25 M/mm3 (3.60-5.2); RDW 16.6 % (11.6-15.6); WHITE BLOOD COUNT 7.1 K/mm3 (4.0-10.0)
[2022-11-26 08:50] LABS: EPI CELLS 11 /uL (0-25.1); HYALINE CASTS 6 /uL (0-3.1); PH,URINE 6.5 (5.0-8.0); URINE APPEARANCE TURBID; URINE BACTERIA 20 /uL (0-1359); URINE BILIRUBIN NEGATIVE (NEGATIVE); URINE COLOR YELLOW; URINE GLUCOSE (UA) NEGATIVE (NEGATIVE); URINE KETONE NEGATIVE (NEGATIVE); URINE LEUK ESTERASE 3+ (NEGATIVE); URINE NITRITE NEGATIVE (NEGATIVE); URINE PROTEIN 2+ (NEGATIVE); URINE RBC 313 /uL (0-23.9); URINE UROBILINOGEN 0.2 mg/dL (0.2-1.0); URINE WBC 5045 /uL (0-25.8)
[2022-11-26 08:58] LABS: BLOOD UREA NITROGEN 15.1 mg/dL (7-18); MAGNESIUM 2.4 mg/dL (1.8-2.4)
[2022-11-26 09:00] LABS: PHOSPHOROUS 2.6 mg/dL (2.5-4.9)
[2022-11-26 09:02] LABS: BILIRUBIN,TOTAL 0.7 mg/dL (0.2-1); TOT PROT 7.6 g/dl (6.4-8.2)
[2022-11-26 09:11] LABS: ALBUMIN 2.8 g/dl (3.4-5.0)
[2022-11-26] MEDS: LACTOBACILLUS ACIDOPHILUS 1 TABLET PO SCH (10:40)
[2022-11-26] MEDS: FERROUS SO4 325 MG TABLET (FP) PO SCH (10:40)
[2022-11-26] MEDS: SENNOSIDES 8.6MG TABLET (FP) PO SCH ×2 (10:40→21:20)
[2022-11-26] MEDS: PANTOPRAZOLE 40 MG TABLET PO SCH ×2 (10:40→21:18)
[2022-11-26] MEDS: COLLAGENASE CLOSTRIDIUM HIST. 30 GRAMS TUBE TP SCH (10:41)
[2022-11-26] MEDS: ERTAPENEM SODIUM 0.5 GM in SODIUM CHLORIDE 50 ML IVPB SCH (10:41)
[2022-11-26] MEDS: POLYETHYLENE GLYCOL (HEALTHYLAX) 3350 17 GM PACKET PO SCH (10:42)
[2022-11-26] MEDS: METOPROLOL TARTRATE 25 MG TABLET (FP) PO SCH ×2 (11:59→21:21)
[2022-11-26] MEDS: MIRTAZAPINE 15 MG TABLET (FP) PO SCH (21:19)
[2022-11-26] MEDS: ATORVASTATIN CA 10 MG TABLET (FP) PO SCH (21:19)
[2022-11-27 08:11] LABS: BASO % 0.6 % (0-2.0); EOS % 0.6 % (0-4.5); HEMATOCRIT 37.9 % (32.4-45.2); HEMOGLOBIN 11.8 GM/dL (10.7-15.3); MCH 25.8 pg (25.7-33.7); MEAN CELL VOLUME 83.2 fl (80-96); MEAN PLT VOLUME 8.5 fl (7.5-11.1); MONO % 13.7 % (3.8-10.2); NEUT % 70.1 % (42.8-82.8); PLATELET COUNT 199 10^3/uL (134-434); RBC 4.55 M/mm3 (3.60-5.2); WHITE BLOOD COUNT 6.5 K/mm3 (4.0-10.0)
[2022-11-27 08:35] LABS: CALCIUM 8.8 mg/dL (8.5-10.1)
[2022-11-27 08:36] LABS: ALBUMIN 2.7 g/dl (3.4-5.0); MAGNESIUM 2.4 mg/dL (1.8-2.4)
[2022-11-27 08:38] LABS: CREATININE 1.1 mg/dL (0.55-1.3); PHOSPHOROUS 2.8 mg/dL (2.5-4.9)
[2022-11-27 08:39] LABS: BILIRUBIN,TOTAL 0.7 mg/dL (0.2-1)
[2022-11-27 08:40] LABS: TOT PROT 7.3 g/dl (6.4-8.2)
[2022-11-27] MEDS: LACTOBACILLUS ACIDOPHILUS 1 TABLET PO SCH (10:39)
[2022-11-27] MEDS: COLLAGENASE CLOSTRIDIUM HIST. 30 GRAMS TUBE TP SCH (10:39)
[2022-11-27] MEDS: METOPROLOL TARTRATE 25 MG TABLET (FP) PO SCH ×2 (10:39→22:04)
[2022-11-27] MEDS: FERROUS SO4 325 MG TABLET (FP) PO SCH (10:39)
[2022-11-27] MEDS: PANTOPRAZOLE 40 MG TABLET PO SCH ×2 (10:39→22:00)
[2022-11-27] MEDS: SENNOSIDES 8.6MG TABLET (FP) PO SCH ×2 (10:39→21:59)
[2022-11-27] MEDS: POLYETHYLENE GLYCOL (HEALTHYLAX) 3350 17 GM PACKET PO SCH (10:39)
[2022-11-27] MEDS: ERTAPENEM SODIUM 0.5 GM in SODIUM CHLORIDE 50 ML IVPB SCH (10:55)
[2022-11-27] MEDS: MIRTAZAPINE 15 MG TABLET (FP) PO SCH (21:59)
[2022-11-27] MEDS: ATORVASTATIN CA 10 MG TABLET (FP) PO SCH (22:00)
[2022-11-28] MEDS: PANTOPRAZOLE 40 MG TABLET PO SCH ×2 (10:30→22:26)
[2022-11-28] MEDS: FERROUS SO4 325 MG TABLET (FP) PO SCH (10:30)
[2022-11-28] MEDS: SENNOSIDES 8.6MG TABLET (FP) PO SCH ×2 (10:30→22:32)
[2022-11-28] MEDS: POLYETHYLENE GLYCOL (HEALTHYLAX) 3350 17 GM PACKET PO SCH (10:30)
[2022-11-28] MEDS: LACTOBACILLUS ACIDOPHILUS 1 TABLET PO SCH (10:30)
[2022-11-28] MEDS: METOPROLOL TARTRATE 25 MG TABLET (FP) PO SCH ×2 (10:30→22:26)
[2022-11-28] MEDS: COLLAGENASE CLOSTRIDIUM HIST. 30 GRAMS TUBE TP SCH (10:31)
[2022-11-28 11:19] LABS: BASO % 0.7 % (0-2.0); EOS % 0.4 % (0-4.5); HEMATOCRIT 33.9 % (32.4-45.2); HEMOGLOBIN 10.7 GM/dL (10.7-15.3); LYMPH % 16.3 % (8-40); MCH 26.2 pg (25.7-33.7); MCHC 31.5 g/dl (32.0-36.0); MEAN CELL VOLUME 83.2 fl (80-96); MONO % 12.9 % (3.8-10.2); NEUT % 69.7 % (42.8-82.8); PLATELET COUNT 211 10^3/uL (134-434); RBC 4.07 M/mm3 (3.60-5.2); RDW 16.7 % (11.6-15.6); WHITE BLOOD COUNT 7.2 K/mm3 (4.0-10.0)
[2022-11-28 11:39] LABS: BLOOD UREA NITROGEN 19.5 mg/dL (7-18); CALCIUM 8.8 mg/dL (8.5-10.1)
[2022-11-28 11:40] LABS: ALBUMIN 2.7 g/dl (3.4-5.0); MAGNESIUM 2.5 mg/dL (1.8-2.4)
[2022-11-28 11:42] LABS: PHOSPHOROUS 2.3 mg/dL (2.5-4.9)
[2022-11-28 11:44] LABS: CREATININE 1.2 mg/dL (0.55-1.3)
[2022-11-28 11:45] LABS: TOT PROT 7.3 g/dl (6.4-8.2)
[2022-11-28 11:46] LABS: BILIRUBIN,TOTAL 0.6 mg/dL (0.2-1)
[2022-11-28] MEDS: ERTAPENEM SODIUM 0.5 GM in SODIUM CHLORIDE 50 ML IVPB SCH (12:26)
[2022-11-28] MEDS ORDERED: NAPH,MB-DB/K PH,MBDB POWDER PACKET PO ONE (15:30)
[2022-11-28] MEDS: ATORVASTATIN CA 10 MG TABLET (FP) PO SCH (22:26)
[2022-11-28] MEDS: MIRTAZAPINE 15 MG TABLET (FP) PO SCH (22:26)
[2022-11-28] MEDS: INSULIN SLIDING SCALE (NOVOLOG) 1 VIAL SQ SCH (23:29)
[2022-11-29] MEDS: INSULIN SLIDING SCALE (NOVOLOG) 1 VIAL SQ SCH ×4 (06:12→21:51)
[2022-11-29] MEDS: METOPROLOL TARTRATE 25 MG TABLET (FP) PO SCH ×2 (10:05→21:47)
[2022-11-29] MEDS: LACTOBACILLUS ACIDOPHILUS 1 TABLET PO SCH (10:06)
[2022-11-29] MEDS: FERROUS SO4 325 MG TABLET (FP) PO SCH (10:06)
[2022-11-29] MEDS: PANTOPRAZOLE 40 MG TABLET PO SCH ×2 (10:06→21:45)
[2022-11-29] MEDS: POLYETHYLENE GLYCOL (HEALTHYLAX) 3350 17 GM PACKET PO SCH (10:06)
[2022-11-29] MEDS: SENNOSIDES 8.6MG TABLET (FP) PO SCH ×2 (10:06→21:47)
[2022-11-29] MEDS: ERTAPENEM SODIUM 0.5 GM in SODIUM CHLORIDE 50 ML IVPB SCH (10:47)
[2022-11-29] MEDS: COLLAGENASE CLOSTRIDIUM HIST. 30 GRAMS TUBE TP SCH (11:46)
[2022-11-29 12:04] LABS: CALCIUM 8.9 mg/dL (8.5-10.1)
[2022-11-29 12:06] LABS: ALBUMIN 2.6 g/dl (3.4-5.0); BLOOD UREA NITROGEN 17.6 mg/dL (7-18); MAGNESIUM 2.4 mg/dL (1.8-2.4)
[2022-11-29 12:08] LABS: PHOSPHOROUS 3.1 mg/dL (2.5-4.9)
[2022-11-29 12:10] LABS: BILIRUBIN,TOTAL 0.8 mg/dL (0.2-1); TOT PROT 7.3 g/dl (6.4-8.2)
[2022-11-29 12:54] LABS: BASO % 1.1 % (0-2.0); EOS % 0.7 % (0-4.5); HEMATOCRIT 31.7 % (32.4-45.2); HEMOGLOBIN 9.9 GM/dL (10.7-15.3); LYMPH % 13.4 % (8-40); MCH 25.9 pg (25.7-33.7); MCHC 31.2 g/dl (32.0-36.0); MEAN PLT VOLUME 8.3 fl (7.5-11.1); MONO % 14.5 % (3.8-10.2); NEUT % 70.3 % (42.8-82.8); PLATELET COUNT 192 10^3/uL (134-434); RBC 3.82 M/mm3 (3.60-5.2); RDW 16.9 % (11.6-15.6); WHITE BLOOD COUNT 6.5 K/mm3 (4.0-10.0)
[2022-11-29] MEDS: MIRTAZAPINE 15 MG TABLET (FP) PO SCH (21:46)
[2022-11-29] MEDS: ATORVASTATIN CA 10 MG TABLET (FP) PO SCH (21:47)
[2022-11-30] MEDS: INSULIN SLIDING SCALE (NOVOLOG) 1 VIAL SQ SCH ×4 (06:14→21:34)
[2022-11-30 08:44] LABS: BASO % 1.1 % (0-2.0); EOS % 0.7 % (0-4.5); HEMATOCRIT 33.1 % (32.4-45.2); HEMOGLOBIN 10.2 GM/dL (10.7-15.3); LYMPH % 19.1 % (8-40); MCHC 30.9 g/dl (32.0-36.0); MEAN CELL VOLUME 84.1 fl (80-96); MEAN PLT VOLUME 8.9 fl (7.5-11.1); MONO % 12.5 % (3.8-10.2); NEUT % 66.6 % (42.8-82.8); PLATELET COUNT 221 10^3/uL (134-434); RBC 3.94 M/mm3 (3.60-5.2); RDW 17.1 % (11.6-15.6); WHITE BLOOD COUNT 5.4 K/mm3 (4.0-10.0)
[2022-11-30 09:16] LABS: ALBUMIN 2.6 g/dl (3.4-5.0)
[2022-11-30 09:19] LABS: CREATININE 1.1 mg/dL (0.55-1.3)
[2022-11-30 09:20] LABS: BILIRUBIN,TOTAL 0.8 mg/dL (0.2-1); TOT PROT 7.2 g/dl (6.4-8.2)
[2022-11-30] MEDS: FERROUS SO4 325 MG TABLET (FP) PO SCH (10:59)
[2022-11-30] MEDS: ERTAPENEM SODIUM 0.5 GM in SODIUM CHLORIDE 50 ML IVPB SCH (10:59)
[2022-11-30] MEDS: POLYETHYLENE GLYCOL (HEALTHYLAX) 3350 17 GM PACKET PO SCH (10:59)
[2022-11-30] MEDS: LACTOBACILLUS ACIDOPHILUS 1 TABLET PO SCH (10:59)
[2022-11-30] MEDS: METOPROLOL TARTRATE 25 MG TABLET (FP) PO SCH ×2 (11:00→21:33)
[2022-11-30] MEDS: COLLAGENASE CLOSTRIDIUM HIST. 30 GRAMS TUBE TP SCH (11:00)
[2022-11-30] MEDS: SENNOSIDES 8.6MG TABLET (FP) PO SCH ×2 (11:00→21:33)
[2022-11-30] MEDS: PANTOPRAZOLE 40 MG TABLET PO SCH ×2 (11:00→21:33)
[2022-11-30 14:03] LABS: N-TERMINAL BNP 24100.3 pg/ml (5-450)
[2022-11-30] MEDS: MIRTAZAPINE 15 MG TABLET (FP) PO SCH (21:34)
[2022-11-30] MEDS: ATORVASTATIN CA 10 MG TABLET (FP) PO SCH (21:34)
[2022-12-01] MEDS: INSULIN SLIDING SCALE (NOVOLOG) 1 VIAL SQ SCH ×4 (06:07→21:22)
[2022-12-01] MEDS: ERTAPENEM SODIUM 0.5 GM in SODIUM CHLORIDE 50 ML IVPB SCH (10:16)
[2022-12-01] MEDS: LACTOBACILLUS ACIDOPHILUS 1 TABLET PO SCH (10:16)
[2022-12-01] MEDS: METOPROLOL TARTRATE 25 MG TABLET (FP) PO SCH ×2 (10:16→21:24)
[2022-12-01] MEDS: POLYETHYLENE GLYCOL (HEALTHYLAX) 3350 17 GM PACKET PO SCH (10:17)
[2022-12-01] MEDS: FERROUS SO4 325 MG TABLET (FP) PO SCH (10:17)
[2022-12-01] MEDS: PANTOPRAZOLE 40 MG TABLET PO SCH ×2 (10:17→21:22)
[2022-12-01] MEDS: SENNOSIDES 8.6MG TABLET (FP) PO SCH ×2 (10:17→21:23)
[2022-12-01] MEDS: COLLAGENASE CLOSTRIDIUM HIST. 30 GRAMS TUBE TP SCH (10:17)
[2022-12-01 14:08] LABS: BASO % 0.5 % (0-2.0); EOS % 0.6 % (0-4.5); HEMATOCRIT 34.9 % (32.4-45.2); HEMOGLOBIN 10.8 GM/dL (10.7-15.3); LYMPH % 19.3 % (8-40); MCH 25.7 pg (25.7-33.7); MCHC 30.9 g/dl (32.0-36.0); MEAN CELL VOLUME 83.3 fl (80-96); MEAN PLT VOLUME 8.9 fl (7.5-11.1); MONO % 13.2 % (3.8-10.2); NEUT % 66.4 % (42.8-82.8); PLATELET COUNT 231 10^3/uL (134-434); RBC 4.19 M/mm3 (3.60-5.2); RDW 17.3 % (11.6-15.6); WHITE BLOOD COUNT 4.9 K/mm3 (4.0-10.0)
[2022-12-01 14:28] LABS: CALCIUM 8.9 mg/dL (8.5-10.1)
[2022-12-01 14:29] LABS: ALBUMIN 2.7 g/dl (3.4-5.0); BLOOD UREA NITROGEN 16.8 mg/dL (7-18)
[2022-12-01 14:32] LABS: CREATININE 1.1 mg/dL (0.55-1.3)
[2022-12-01 14:34] LABS: BILIRUBIN,TOTAL 0.5 mg/dL (0.2-1); TOT PROT 7.2 g/dl (6.4-8.2)
[2022-12-01] MEDS: AMINO ACIDS/PROTEIN HYDROLYS 30 ML LIQUID.PKT PO SCH (17:42)
[2022-12-01] MEDS: ATORVASTATIN CA 10 MG TABLET (FP) PO SCH (21:22)
[2022-12-01] MEDS: MIRTAZAPINE 15 MG TABLET (FP) PO SCH (21:22)
[2022-12-02] MEDS: INSULIN SLIDING SCALE (NOVOLOG) 1 VIAL SQ SCH ×4 (06:16→21:31)
[2022-12-02 08:59] LABS: BASO % 0.2 % (0-2.0); EOS % 0.5 % (0-4.5); HEMATOCRIT 29.8 % (32.4-45.2); HEMOGLOBIN 9.3 GM/dL (10.7-15.3); LYMPH % 22.4 % (8-40); MCH 26.1 pg (25.7-33.7); MCHC 31.2 g/dl (32.0-36.0); MEAN CELL VOLUME 83.5 fl (80-96); MEAN PLT VOLUME 8.5 fl (7.5-11.1); MONO % 15.8 % (3.8-10.2); NEUT % 61.1 % (42.8-82.8); PLATELET COUNT 191 10^3/uL (134-434); RBC 3.57 M/mm3 (3.60-5.2); RDW 17.3 % (11.6-15.6)
[2022-12-02 09:33] LABS: ALBUMIN 2.4 g/dl (3.4-5.0); BLOOD UREA NITROGEN 17.5 mg/dL (7-18); CALCIUM 8.5 mg/dL (8.5-10.1); MAGNESIUM 2.4 mg/dL (1.8-2.4)
[2022-12-02 09:35] LABS: PHOSPHOROUS 2.6 mg/dL (2.5-4.9)
[2022-12-02 09:37] LABS: BILIRUBIN,TOTAL 0.4 mg/dL (0.2-1); TOT PROT 6.6 g/dl (6.4-8.2)
[2022-12-02] MEDS: AMINO ACIDS/PROTEIN HYDROLYS 30 ML LIQUID.PKT PO SCH ×3 (09:40→17:46)
[2022-12-02] MEDS: SENNOSIDES 8.6MG TABLET (FP) PO SCH ×2 (09:40→21:31)
[2022-12-02] MEDS: LACTOBACILLUS ACIDOPHILUS 1 TABLET PO SCH (09:41)
[2022-12-02] MEDS: POLYETHYLENE GLYCOL (HEALTHYLAX) 3350 17 GM PACKET PO SCH (09:41)
[2022-12-02] MEDS: MULTIVITAMINS (DAILY MVI) TABLET (FP) PO SCH (09:41)
[2022-12-02] MEDS: FERROUS SO4 325 MG TABLET (FP) PO SCH (09:41)
[2022-12-02] MEDS: PANTOPRAZOLE 40 MG TABLET PO SCH ×2 (09:41→21:31)
[2022-12-02] MEDS: METOPROLOL TARTRATE 25 MG TABLET (FP) PO SCH ×2 (09:41→21:32)
[2022-12-02] MEDS: COLLAGENASE CLOSTRIDIUM HIST. 30 GRAMS TUBE TP SCH (09:43)
[2022-12-02] MEDS ORDERED: SODIUM ZIRCONIUM CYCLOSILICATE (LOKELMA) 5 GM PACKET PO SCH (10:45)
[2022-12-02] MEDS: MIRTAZAPINE 15 MG TABLET (FP) PO SCH (21:30)
[2022-12-02] MEDS: ATORVASTATIN CA 10 MG TABLET (FP) PO SCH (21:31)
[2022-12-03] MEDS: INSULIN SLIDING SCALE (NOVOLOG) 1 VIAL SQ SCH ×4 (06:32→21:54)
[2022-12-03 08:04] LABS: ALBUMIN 2.6 g/dl (3.4-5.0)
[2022-12-03 08:05] LABS: BLOOD UREA NITROGEN 14.6 mg/dL (7-18); MAGNESIUM 2.4 mg/dL (1.8-2.4)
[2022-12-03 08:08] LABS: CREATININE 1.1 mg/dL (0.55-1.3); PHOSPHOROUS 3.1 mg/dL (2.5-4.9)
[2022-12-03 08:09] LABS: BILIRUBIN,TOTAL 0.6 mg/dL (0.2-1); TOT PROT 6.9 g/dl (6.4-8.2)
[2022-12-03 08:15] LABS: BASO % 1.1 % (0-2.0); EOS % 0.7 % (0-4.5); HEMATOCRIT 33.2 % (32.4-45.2); HEMOGLOBIN 10.3 GM/dL (10.7-15.3); LYMPH % 20.4 % (8-40); MCH 25.9 pg (25.7-33.7); MEAN CELL VOLUME 83.5 fl (80-96); MEAN PLT VOLUME 8.8 fl (7.5-11.1); MONO % 14.1 % (3.8-10.2); NEUT % 63.7 % (42.8-82.8); PLATELET COUNT 208 10^3/uL (134-434); RBC 3.98 M/mm3 (3.60-5.2); RDW 17.3 % (11.6-15.6); WHITE BLOOD COUNT 5.2 K/mm3 (4.0-10.0)
[2022-12-03] MEDS: MULTIVITAMINS (DAILY MVI) TABLET (FP) PO SCH (09:56)
[2022-12-03] MEDS: PANTOPRAZOLE 40 MG TABLET PO SCH ×2 (09:56→21:53)
[2022-12-03] MEDS: SENNOSIDES 8.6MG TABLET (FP) PO SCH ×3 (09:56→22:01)
[2022-12-03] MEDS: FERROUS SO4 325 MG TABLET (FP) PO SCH (09:56)
[2022-12-03] MEDS: SODIUM ZIRCONIUM CYCLOSILICATE (LOKELMA) 5 GM PACKET PO SCH (09:56)
[2022-12-03] MEDS: LACTOBACILLUS ACIDOPHILUS 1 TABLET PO SCH (09:56)
[2022-12-03] MEDS: METOPROLOL TARTRATE 25 MG TABLET (FP) PO SCH ×2 (09:57→21:53)
[2022-12-03] MEDS: AMINO ACIDS/PROTEIN HYDROLYS 30 ML LIQUID.PKT PO SCH ×2 (09:58→17:13)
[2022-12-03] MEDS: POLYETHYLENE GLYCOL (HEALTHYLAX) 3350 17 GM PACKET PO SCH (10:51)
[2022-12-03] MEDS: COLLAGENASE CLOSTRIDIUM HIST. 30 GRAMS TUBE TP SCH (10:52)
[2022-12-03] MEDS: MIRTAZAPINE 15 MG TABLET (FP) PO SCH (21:52)
[2022-12-03] MEDS: ATORVASTATIN CA 10 MG TABLET (FP) PO SCH (21:54)
[2022-12-04] MEDS ORDERED: LIDOCAINE HCL 2% JELLY 10 ML CARTRIDGE TP ONE
[2022-12-04] MEDS: INSULIN SLIDING SCALE (NOVOLOG) 1 VIAL SQ SCH ×4 (06:12→22:18)
[2022-12-04 07:17] LABS: EOS % 0.4 % (0-4.5); HEMATOCRIT 32.7 % (32.4-45.2); HEMOGLOBIN 10.3 GM/dL (10.7-15.3); LYMPH % 20.3 % (8-40); MCH 26.5 pg (25.7-33.7); MCHC 31.4 g/dl (32.0-36.0); MEAN CELL VOLUME 84.2 fl (80-96); MONO % 11.8 % (3.8-10.2); NEUT % 66.5 % (42.8-82.8); PLATELET COUNT 208 10^3/uL (134-434); RBC 3.89 M/mm3 (3.60-5.2); RDW 17.2 % (11.6-15.6)
[2022-12-04 07:48] LABS: ALBUMIN 2.8 g/dl (3.4-5.0); BLOOD UREA NITROGEN 22.4 mg/dL (7-18); MAGNESIUM 2.3 mg/dL (1.8-2.4)
[2022-12-04 07:51] LABS: CREATININE 1.1 mg/dL (0.55-1.3); PHOSPHOROUS 3.4 mg/dL (2.5-4.9)
[2022-12-04 07:52] LABS: TOT PROT 7.4 g/dl (6.4-8.2)
[2022-12-04 07:53] LABS: BILIRUBIN,TOTAL 0.6 mg/dL (0.2-1)
[2022-12-04] MEDS: SENNOSIDES 8.6MG TABLET (FP) PO SCH ×2 (09:46→22:25)
[2022-12-04] MEDS: FERROUS SO4 325 MG TABLET (FP) PO SCH (09:46)
[2022-12-04] MEDS: AMINO ACIDS/PROTEIN HYDROLYS 30 ML LIQUID.PKT PO SCH ×2 (09:54→20:50)
[2022-12-04] MEDS: POLYETHYLENE GLYCOL (HEALTHYLAX) 3350 17 GM PACKET PO SCH (09:54)
[2022-12-04] MEDS: LACTOBACILLUS ACIDOPHILUS 1 TABLET PO SCH (09:54)
[2022-12-04] MEDS: COLLAGENASE CLOSTRIDIUM HIST. 30 GRAMS TUBE TP SCH (09:54)
[2022-12-04] MEDS: SODIUM ZIRCONIUM CYCLOSILICATE (LOKELMA) 5 GM PACKET PO SCH (09:54)
[2022-12-04] MEDS: METOPROLOL TARTRATE 25 MG TABLET (FP) PO SCH ×2 (09:54→22:19)
[2022-12-04] MEDS: PANTOPRAZOLE 40 MG TABLET PO SCH ×2 (09:54→22:18)
[2022-12-04] MEDS: MULTIVITAMINS (DAILY MVI) TABLET (FP) PO SCH (09:55)
[2022-12-04] MEDS ORDERED: SUCCINYLCHOLINE CHLORIDE 200 MG/10 ML SYRINGE ONE (13:17)
[2022-12-04] MEDS ORDERED: PROPOFOL 20 ML ONE (13:18)
[2022-12-04] MEDS ORDERED: ceFAZolin SODIUM 1 GM VIAL IVPB ONE ×3 (13:44)
[2022-12-04] MEDS: ATORVASTATIN CA 10 MG TABLET (FP) PO SCH (22:18)
[2022-12-04] MEDS: MIRTAZAPINE 15 MG TABLET (FP) PO SCH (22:18)
[2022-12-05] MEDS: INSULIN SLIDING SCALE (NOVOLOG) 1 VIAL SQ SCH ×4 (06:14→22:14)
[2022-12-05 08:22] LABS: BASO % 0.8 % (0-2.0); EOS % 0.5 % (0-4.5); HEMATOCRIT 31.3 % (32.4-45.2); HEMOGLOBIN 9.9 GM/dL (10.7-15.3); LYMPH % 18.1 % (8-40); MCH 26.2 pg (25.7-33.7); MCHC 31.6 g/dl (32.0-36.0); MEAN PLT VOLUME 8.8 fl (7.5-11.1); MONO % 10.2 % (3.8-10.2); NEUT % 70.4 % (42.8-82.8); PLATELET COUNT 192 10^3/uL (134-434); RBC 3.77 M/mm3 (3.60-5.2); RDW 17.1 % (11.6-15.6); WHITE BLOOD COUNT 6.3 K/mm3 (4.0-10.0)
[2022-12-05 09:14] LABS: CALCIUM 8.7 mg/dL (8.5-10.1)
[2022-12-05 09:15] LABS: ALBUMIN 2.5 g/dl (3.4-5.0); BLOOD UREA NITROGEN 19.5 mg/dL (7-18)
[2022-12-05 09:17] LABS: PHOSPHOROUS 3.1 mg/dL (2.5-4.9)
[2022-12-05 09:18] LABS: CREATININE 0.9 mg/dL (0.55-1.3)
[2022-12-05 09:19] LABS: BILIRUBIN,TOTAL 0.5 mg/dL (0.2-1); TOT PROT 6.8 g/dl (6.4-8.2)
[2022-12-05] MEDS ORDERED: SODIUM ZIRCONIUM CYCLOSILICATE (LOKELMA) 5 GM PACKET PO SCH (10:00)
[2022-12-05] MEDS: FERROUS SO4 325 MG TABLET (FP) PO SCH (10:00)
[2022-12-05] MEDS: LACTOBACILLUS ACIDOPHILUS 1 TABLET PO SCH (10:00)
[2022-12-05] MEDS: METOPROLOL TARTRATE 25 MG TABLET (FP) PO SCH ×2 (10:00→22:16)
[2022-12-05] MEDS: SENNOSIDES 8.6MG TABLET (FP) PO SCH ×2 (10:01→22:16)
[2022-12-05] MEDS: PANTOPRAZOLE 40 MG TABLET PO SCH ×2 (10:01→22:16)
[2022-12-05] MEDS: MULTIVITAMINS (DAILY MVI) TABLET (FP) PO SCH (10:01)
[2022-12-05] MEDS: COLLAGENASE CLOSTRIDIUM HIST. 30 GRAMS TUBE TP SCH (10:02)
[2022-12-05] MEDS: AMINO ACIDS/PROTEIN HYDROLYS 30 ML LIQUID.PKT PO SCH ×2 (10:03→18:24)
[2022-12-05] MEDS: POLYETHYLENE GLYCOL (HEALTHYLAX) 3350 17 GM PACKET PO SCH (10:03)
[2022-12-05] MEDS: ATORVASTATIN CA 10 MG TABLET (FP) PO SCH (22:16)
[2022-12-05] MEDS: MIRTAZAPINE 15 MG TABLET (FP) PO SCH (22:16)
[2022-12-05] MEDS: ACETAMINOPHEN 325 MG TABLET (FP) PO PRN (23:17)
[2022-12-06] MEDS: INSULIN SLIDING SCALE (NOVOLOG) 1 VIAL SQ SCH ×5 (06:22→22:40)
[2022-12-06 08:20] LABS: BASO % 0.6 % (0-2.0); EOS % 0.1 % (0-4.5); HEMATOCRIT 27.8 % (32.4-45.2); HEMOGLOBIN 8.9 GM/dL (10.7-15.3); LYMPH % 14.3 % (8-40); MCH 26.5 pg (25.7-33.7); MEAN PLT VOLUME 8.6 fl (7.5-11.1); MONO % 9.1 % (3.8-10.2); NEUT % 75.9 % (42.8-82.8); PLATELET COUNT 164 10^3/uL (134-434); RBC 3.35 M/mm3 (3.60-5.2); RDW 17.2 % (11.6-15.6); WHITE BLOOD COUNT 6.6 K/mm3 (4.0-10.0)
[2022-12-06 09:13] LABS: BLOOD UREA NITROGEN 23.6 mg/dL (7-18); CALCIUM 8.5 mg/dL (8.5-10.1)
[2022-12-06 09:14] LABS: ALBUMIN 2.3 g/dl (3.4-5.0)
[2022-12-06 09:16] LABS: CREATININE 1.2 mg/dL (0.55-1.3); PHOSPHOROUS 2.4 mg/dL (2.5-4.9)
[2022-12-06 09:17] LABS: BILIRUBIN,TOTAL 0.5 mg/dL (0.2-1); TOT PROT 6.1 g/dl (6.4-8.2)
[2022-12-06] MEDS: METOPROLOL TARTRATE 25 MG TABLET (FP) PO SCH ×2 (10:21→22:39)
[2022-12-06] MEDS: ACETAMINOPHEN 325 MG TABLET (FP) PO PRN (10:21)
[2022-12-06] MEDS: PANTOPRAZOLE 40 MG TABLET PO SCH ×2 (10:21→22:39)
[2022-12-06] MEDS: LACTOBACILLUS ACIDOPHILUS 1 TABLET PO SCH (10:21)
[2022-12-06] MEDS: AMINO ACIDS/PROTEIN HYDROLYS 30 ML LIQUID.PKT PO SCH ×2 (10:21→16:38)
[2022-12-06] MEDS: FERROUS SO4 325 MG TABLET (FP) PO SCH (10:21)
[2022-12-06] MEDS: MULTIVITAMINS (DAILY MVI) TABLET (FP) PO SCH (10:22)
[2022-12-06] MEDS: POLYETHYLENE GLYCOL (HEALTHYLAX) 3350 17 GM PACKET PO SCH (10:22)
[2022-12-06] MEDS: COLLAGENASE CLOSTRIDIUM HIST. 30 GRAMS TUBE TP SCH (10:22)
[2022-12-06] MEDS: SENNOSIDES 8.6MG TABLET (FP) PO SCH ×2 (10:22→22:38)
[2022-12-06] MEDS: ATORVASTATIN CA 10 MG TABLET (FP) PO SCH (22:39)
[2022-12-06] MEDS: MIRTAZAPINE 15 MG TABLET (FP) PO SCH (22:39)
[2022-12-07] MEDS: INSULIN SLIDING SCALE (NOVOLOG) 1 VIAL SQ SCH ×4 (06:05→22:00)
[2022-12-07 08:57] LABS: EOS % 1.1 % (0-4.5); HEMATOCRIT 26.9 % (32.4-45.2); HEMOGLOBIN 8.5 GM/dL (10.7-15.3); LYMPH % 23.5 % (8-40); MCHC 31.5 g/dl (32.0-36.0); MEAN CELL VOLUME 82.5 fl (80-96); MEAN PLT VOLUME 8.6 fl (7.5-11.1); MONO % 12.2 % (3.8-10.2); NEUT % 62.2 % (42.8-82.8); PLATELET COUNT 173 10^3/uL (134-434); RBC 3.26 M/mm3 (3.60-5.2); WHITE BLOOD COUNT 4.3 K/mm3 (4.0-10.0)
[2022-12-07] MEDS: METOPROLOL TARTRATE 25 MG TABLET (FP) PO SCH ×2 (09:19→22:00)
[2022-12-07] MEDS: POLYETHYLENE GLYCOL (HEALTHYLAX) 3350 17 GM PACKET PO SCH (09:19)
[2022-12-07] MEDS: PANTOPRAZOLE 40 MG TABLET PO SCH ×2 (09:19→22:00)
[2022-12-07] MEDS: MULTIVITAMINS (DAILY MVI) TABLET (FP) PO SCH (09:19)
[2022-12-07] MEDS: FERROUS SO4 325 MG TABLET (FP) PO SCH (09:19)
[2022-12-07] MEDS: LACTOBACILLUS ACIDOPHILUS 1 TABLET PO SCH (09:19)
[2022-12-07] MEDS: SENNOSIDES 8.6MG TABLET (FP) PO SCH ×2 (09:19→23:22)
[2022-12-07] MEDS: AMINO ACIDS/PROTEIN HYDROLYS 30 ML LIQUID.PKT PO SCH (09:20)
[2022-12-07 09:39] LABS: ALBUMIN 2.2 g/dl (3.4-5.0); BILIRUBIN,TOTAL 0.4 mg/dL (0.2-1); BLOOD UREA NITROGEN 19.1 mg/dL (7-18); CALCIUM 8.4 mg/dL (8.5-10.1); CREATININE 0.7 mg/dL (0.55-1.3)
[2022-12-07] MEDS: COLLAGENASE CLOSTRIDIUM HIST. 30 GRAMS TUBE TP SCH (10:16)
[2022-12-07] MEDS: ATORVASTATIN CA 10 MG TABLET (FP) PO SCH (22:00)
[2022-12-07] MEDS: MIRTAZAPINE 15 MG TABLET (FP) PO SCH (22:00)
[2022-12-08] MEDS: INSULIN SLIDING SCALE (NOVOLOG) 1 VIAL SQ SCH ×4 (06:48→21:39)
[2022-12-08 09:26] LABS: BASO % 1.1 % (0-2.0); EOS % 1.4 % (0-4.5); HEMATOCRIT 27.1 % (32.4-45.2); HEMOGLOBIN 8.5 GM/dL (10.7-15.3); LYMPH % 29.6 % (8-40); MCHC 31.5 g/dl (32.0-36.0); MEAN CELL VOLUME 82.4 fl (80-96); MEAN PLT VOLUME 8.3 fl (7.5-11.1); MONO % 14.2 % (3.8-10.2); NEUT % 53.7 % (42.8-82.8); PLATELET COUNT 183 10^3/uL (134-434); RBC 3.28 M/mm3 (3.60-5.2); RDW 17.1 % (11.6-15.6); WHITE BLOOD COUNT 4.3 K/mm3 (4.0-10.0)
[2022-12-08] MEDS: SENNOSIDES 8.6MG TABLET (FP) PO SCH ×2 (09:33→21:38)
[2022-12-08] MEDS: POLYETHYLENE GLYCOL (HEALTHYLAX) 3350 17 GM PACKET PO SCH (09:33)
[2022-12-08] MEDS: LACTOBACILLUS ACIDOPHILUS 1 TABLET PO SCH (09:36)
[2022-12-08] MEDS: PANTOPRAZOLE 40 MG TABLET PO SCH ×2 (09:36→21:38)
[2022-12-08] MEDS: MULTIVITAMINS (DAILY MVI) TABLET (FP) PO SCH (09:36)
[2022-12-08] MEDS: METOPROLOL TARTRATE 25 MG TABLET (FP) PO SCH ×2 (09:36→21:40)
[2022-12-08] MEDS: FERROUS SO4 325 MG TABLET (FP) PO SCH (09:36)
[2022-12-08] MEDS: COLLAGENASE CLOSTRIDIUM HIST. 30 GRAMS TUBE TP SCH (09:36)
[2022-12-08] MEDS: AMINO ACIDS/PROTEIN HYDROLYS 30 ML LIQUID.PKT PO SCH (09:36)
[2022-12-08 09:56] LABS: CALCIUM 8.2 mg/dL (8.5-10.1)
[2022-12-08 09:57] LABS: BLOOD UREA NITROGEN 18.3 mg/dL (7-18)
[2022-12-08 10:00] LABS: CREATININE 0.7 mg/dL (0.55-1.3)
[2022-12-08] MEDS: MIRTAZAPINE 15 MG TABLET (FP) PO SCH (21:38)
[2022-12-08] MEDS: ATORVASTATIN CA 10 MG TABLET (FP) PO SCH (21:45)
[2022-12-09] MEDS: INSULIN SLIDING SCALE (NOVOLOG) 1 VIAL SQ SCH (06:07)
[2022-12-09] MEDS: ACETAMINOPHEN 325 MG TABLET (FP) PO PRN (06:11)
[2022-12-09] MEDS: METOPROLOL TARTRATE 25 MG TABLET (FP) PO SCH (09:49)
[2022-12-09] MEDS: LACTOBACILLUS ACIDOPHILUS 1 TABLET PO SCH (09:49)
[2022-12-09] MEDS: AMINO ACIDS/PROTEIN HYDROLYS 30 ML LIQUID.PKT PO SCH (09:49)
[2022-12-09] MEDS: MULTIVITAMINS (DAILY MVI) TABLET (FP) PO SCH (09:50)
[2022-12-09] MEDS: PANTOPRAZOLE 40 MG TABLET PO SCH (09:50)
[2022-12-09] MEDS: SENNOSIDES 8.6MG TABLET (FP) PO SCH (09:50)
[2022-12-09] MEDS: COLLAGENASE CLOSTRIDIUM HIST. 30 GRAMS TUBE TP SCH (09:50)
[2022-12-09] MEDS: FERROUS SO4 325 MG TABLET (FP) PO SCH (09:50)
[2022-12-09] MEDS: POLYETHYLENE GLYCOL (HEALTHYLAX) 3350 17 GM PACKET PO SCH (09:51)
[2022-12-09 09:58] VITALS: BP 132/81; PULSE 104; RESP 17; TEMP 98
== END 2022-12-09 10:34 | DRG 668 ==
LOC: JER 09:19 → JERBED 12:47 → J4S 20:00
PROVIDERS: ADMIT Internal Medicine; ATTEND Internal Medicine
PROC: 0T9B80Z Drainage of Bladder with Drainage Device, Via Natural or Artificial Opening Endoscopic (ICD-10-PCS; 2022-12-04)
PROC: 0TBB8ZX Excision of Bladder, Via Natural or Artificial Opening Endoscopic, Diagnostic (ICD-10-PCS; principal; 2022-12-04 13:00)
PROC: 0T5B8ZZ Destruction of Bladder, Via Natural or Artificial Opening Endoscopic (ICD-10-PCS; 2022-12-04 13:00)
DX: N39.0 Urinary tract infection, site not specified (principal); E43 Unspecified severe protein-calorie malnutrition; L89.313 Pressure ulcer of right buttock, stage 3; I13.0 Hypertensive heart and chronic kidney disease with heart failure and stage 1 through stage 4 chronic kidney disease, or unspecified chronic kidney disease; R64 Cachexia; Z68.1 Body mass index [BMI] 19.9 or less, adult; N17.9 Acute kidney failure, unspecified; I50.22 Chronic systolic (congestive) heart failure; E11.22 Type 2 diabetes mellitus with diabetic chronic kidney disease; I48.91 Unspecified atrial fibrillation; K21.9 Gastro-esophageal reflux disease without esophagitis; I25.10 Atherosclerotic heart disease of native coronary artery without angina pectoris; B95.2 Enterococcus as the cause of diseases classified elsewhere; B96.20 Unspecified Escherichia coli [E. coli] as the cause of diseases classified elsewhere; N32.9 Bladder disorder, unspecified; R09.02 Hypoxemia; N18.9 Chronic kidney disease, unspecified; N31.9 Neuromuscular dysfunction of bladder, unspecified; E87.5 Hyperkalemia; R31.0 Gross hematuria; L89.619 Pressure ulcer of right heel, unspecified stage; R00.0 Tachycardia, unspecified; Z95.0 Presence of cardiac pacemaker; Z85.3 Personal history of malignant neoplasm of breast
CPT/HCPCS: 0241U-QW; 36415; 36600; 71045-TC-FY; 74018-TC-FY; 76000-TC-FY; 76775-TC; 76856-TC; 80048; 80053; 81003; 82010; 82803; 82962; 83605; 83735; 83880; 84100; 84484; 85025; 85027; 85610; 85730; 87040; 87086; 87186; 88108; 88305-TC; 93005; 93010; 94760; 97116-GP; 97161-GP; 99285-25; C9803-CS; U0003; U0005